=== PATIENT | male | born 1955 | race Caucasian/White ===

== ENCOUNTER 2016-05-20 10:55 | Inpatient (IN) | payer BC ==
[2016-05-20] MEDS ORDERED: Nitroglycerin TAB 0.4 MG* 0.4 MG TAB ONE (11:06)
[2016-05-20] MEDS ORDERED: Heparin for STEMI(*) 5,000 UNITS/ML 1 ML VIAL IV ONE ×2 (11:06→11:13)
[2016-05-20] MEDS ORDERED: Aspirin Low Dose CHEW TAB* 81 MG ONE (11:06)
[2016-05-20] MEDS ORDERED: nitroGLYCERIN DRIP* 250 ML ONE ×2 (11:07→11:15)
[2016-05-20] MEDS ORDERED: Metoprolol Tartrate TAB* 50 mg ONE (11:12)
[2016-05-20] MEDS ORDERED: Aspirin Low Dose CHEW TAB* 81 MG PO ONE (11:13)
[2016-05-20] MEDS ORDERED: Heparin(*) 1000 UNIT/ML 10 ML VIAL CATH LAB IV ONE (11:14)
[2016-05-20] MEDS ORDERED: Midazolam* 1 MG/ML 5 ML VIAL (5 MG) ONE (11:14)
[2016-05-20] MEDS ORDERED: nitroGLYCERIN DRIP* 25,000 MCG in PREMIX* 0 ML IV ONE (11:14)
[2016-05-20] MEDS ORDERED: Metoprolol Tartrate TAB* 50 mg PO ONE (11:14)
[2016-05-20] MEDS ORDERED: fentaNYL* 50 MCG/ML 2 ML VIAL (100 MCG VIAL) ONE (11:14)
[2016-05-20] MEDS ORDERED: Lidocaine 1% INJ* 10 MG/ML 30 ML SDV ONE (11:15)
[2016-05-20] MEDS ORDERED: VERAPAMIL 2.5 MG/ML 4 ML VIAL ONE (11:15)
[2016-05-20] MEDS ORDERED: Iohexol 350 (CONTRAST) 200 ML MDV IV ONE ×2 (11:15→12:11)
[2016-05-20] MEDS ORDERED: Heparin 2 UNITS/ML IVPREMIX* 2,000 ML IV ONE (11:15)
[2016-05-20 11:23] LABS: Hematocrit 48 % (42-52); Hemoglobin 15.6 g/dl (14.0-18.0); Mean Corpuscular HGB Conc 33 g/dl (31-36); Mean Corpuscular Hemoglobin 25 pg (27-31); Mean Corpuscular Volume 77 fL (80-94); Mean Platelet Volume 9 um3 (7.4-10.4); Red Blood Count 6.18 10^6/ul (4.0-5.4); Red Cell Distribution Width 16 % (10.5-15); White Blood Count 11.6 10^3/ul (3.5-10.8)
[2016-05-20 11:36] LABS: Albumin 4.3 g/dL (3.2-5.2); Calcium 9.7 mg/dL (8.6-10.3); EGFR Non-African American 76.2 (>60); Globulin 3.1 g/dL (2-4); Potassium 4.2 mmol/L (3.5-5.0); Total Bilirubin 0.4 mg/dL (0.2-1.0); Total Protein 7.4 g/dL (6.4-8.9)
--- NOTE | 2016-05-20 11:43 | ED ---
Marce Rivers Anna, scribed for Smith Gillespie MD on 05/20/16 at 1116 . HPI Chest Pain - HPI Summary HPI Summary: Patient is a 60 y/o male coming to [facility] presenting with sudden onset of constant chest pain that began at 0400 this morning. The pain feels like indigestion or pressure in his chest and radiates to the back, feeling like a finger poking him in the back. He expresses some SOB. He had diaphoresis and experienced one episode of emesis. The pain does not radiate to his arm or jaw. He felt 14 hours of indigestion-like chest pain two days ago. He was asymptomatic yesterday. Denies bleeding ulcers or blood in stool. The pain is resolved at this time. He took Zantac, 325 mg Aspirin, Gloria Orlando, and two Tums at 0500, which alleviated the pain somewhat. He is a smoker with HLD, on medication for HLD. FHx of CAD. - History of Current Complaint Chief Complaint: EDChestPainROMI Hx Obtained From: Patient Pain Intensity: 3 - Allergy/Home Medications Allergies/Adverse Reactions: Allergies Allergy/AdvReac Type Severity Reaction Status Date / Time No Known Allergies Allergy Verified 05/20/16 11:06 PMH/Surg Hx/FS Hx/Imm Hx Cardiovascular History: Reports: Hx Hypercholesterolemia Denies: Hx Angina, Hx Hypertension, Hx Myocardial Infarction Infectious Disease History: No Infectious Disease History: Denies: Traveled Outside the [place] in Last 30 Days - Family History Known Family History: Positive: Cardiac Disease - Social History Lives: With Family Alcohol Use: None Hx Substance Use: No Substance Use Type: Reports: None Smoking Status (MU): Current Every Day Smoker Review of Systems Positive: Skin Diaphoresis Positive: Chest Pain Positive: Shortness Of Breath Positive: Vomiting Negative: other - Denies blood in stool or bleeding ulcers All Other Systems Reviewed And Are Negative: Yes Physical Exam - Summary Physical Exam Summary: The patient is well-nourished and in mild distress. The skin is warm and dry and skin color reflects adequate perfusion. HEENT: The head is normocephalic and atraumatic. The pupils are equal and reactive. The conjunctivae are clear and without drainage. Nares are patent and without drainage. Mouth reveals moist mucous membranes and the throat is without erythema and exudate. The external ears are intact. The ear canals are patent and without drainage. The tympanic membranes are intact. No rhinorrhea from mouth or throat. Neck There are no carotid bruits. There is no neck vein distension. Respiratory: Chest is non-tender. Lungs are clear to auscultation and breath sounds are symmetrical and equal. Cardiovascular: Heart is regular rate and rhythm. There is no murmur or rub auscultated. There is no peripheral edema and pulses are symmetrical and equal. Good pulses distally. Capillary refill <2 seconds. Abdomen: The abdomen is soft and non-tender. There are normal bowel sounds. Musculoskeletal: There is good capillary refill. There is no peripheral edema or calf tenderness elicited. Neurological: Patient is alert and oriented to person, place and time. No facial droop. Psychiatric: The patient has an appropriate affect and does not exhibit any anxiety or depression. Triage Information Reviewed: Yes Vital Signs On Initial Exam: Initial Vitals Temp Pulse Resp BP Pulse Ox 97.8 F 91 16 175/108 100 05/20/16 11:00 05/20/16 11:00 05/20/16 11:00 05/20/16 11:00 05/20/16 11:00 Vital Signs Reviewed: Yes Diagnostics - Vital Signs Vital Signs Temp Pulse Resp BP Pulse Ox 05/20/16 11:00 97.8 F 91 16 175/108 100 - Laboratory Lab Results: Lab Results 05/20/16 05/20/16 05/20/16 Range/Units 11:10 11:10 11:10 WBC 11.6 H (3.5-10.8) 10^3/ul RBC 6.18 H (4.0-5.4) 10^6/ul Hgb 15.6 (14.0-18.0) g/dl Hct 48 (42-52) % MCV 77 L (80-94) fL MCH 25 L (27-31) pg MCHC 33 (31-36) g/dl RDW 16 H (10.5-15) % Plt Count 246 (150-450) 10^3/ul MPV 9 (7.4-10.4) um3 Neut % (Auto) 80.9 (38-83) % Lymph % (Auto) 14.8 L (25-47) % Stan[place]aus % (Auto) 3.5 (1-9) % Eos % (Auto) 0.1 (0-6) % Baso % (Auto) 0.7 (0-2) % Absolute Neuts (auto) 9.4 H (1.5-7.7) 10^3/ul Absolute Lymphs (auto) 1.7 (1.0-4.8) 10^3/ul Absolute Monos (auto) 0.4 (0-0.8) 10^3/ul Absolute Eos (auto) 0 (0-0.6) 10^3/ul Absolute Basos (auto) 0.1 (0-0.2) 10^3/ul Absolute Nucleated RBC 0.01 10^3/ul Nucleated RBC % 0.1 INR (Anticoag Therapy) 0.93 (0.89-1.11) APTT 37.6 H (26.0-36.3) seconds Lactic Acid 1.6 (0.5-2.0) mmol/L Result Diagrams: 05/20/16 11:10 Lab Statement: Any lab studies that have been ordered have been reviewed, and results considered in the medical decision making process. - EKG 1104 Cardiac Rate: NL - [address] Segment: : Normal - ST elevation V2, V3, V4, V5 with reciprocal changes in I and Jonna. Acute, anterior wall NJ. EKG Interpretation: Poor R-wave progression. Chest Pain Course/Dx - Course Assessment/Plan: Obese 60 y/o male with mild distress. Skin is warm and dry. Patient is alert and oriented. Upon physical exam, no TM erythema, no rhinorrhea from mouth or throat. No facial droop. No carotid bruits. No distended neck vein. HRRR w/o murmur. No reproducible CP. Lungs CTA. Belly obese , soft, tender. Good bowel sounds. Good pulses distally. Capillary refill < [address] elevations leads V2-V5 with acute anterior NJ. Treated with Heparin, Aspirin, NTG dip, and going to cardiac catheterization lab. Consult out to Dr. He. STEMI called. Dx acute anterior NJ. - Chest Pain Differential Diagnosis/HQI/PQRI: Acute NJ, ACS, Angina, GI Disease - Diagnoses Provider Diagnoses: ST elevation myocardial infarction (STEMI) of anterior wall During the Visit The Following Alert/Code Occurred: STEMI - Called at 1105 - Provider Notifications Discussed Care Of Patient With: Dr. He (cardiology) at 1108. Accepts patient for admission to cardiac laboratory director. Discharge - Discharge Plan Condition: Critical Disposition: ADMITTED TO [facility] Referrals: No Primary Care Phys,NOPCP [Primary Care Provider] - The documentation as recorded by the Marce mcintyre Anna accurately reflects the service I personally performed and the decisions made by me, Smith Gillespie MD.
[2016-05-20] MEDS ORDERED: Ticagrelor* 90 MG TAB PO ONE (12:21)
[2016-05-20] MEDS ORDERED: Nitroglycerin TAB 0.4 MG* 0.4 MG TAB SL PRN (12:48)
[2016-05-20] MEDS ORDERED: NS 0.9% 1000 ML* 1,000 ML IV SCH (13:00)
[2016-05-20] MEDS: Metoprolol Tartrate TAB* 25 MG PO SCH ×2 (13:46→20:43)
[2016-05-20 14:13] LABS: Hematocrit 43 % (42-52); Mean Corpuscular HGB Conc 32 g/dl (31-36); Mean Corpuscular Hemoglobin 25 pg (27-31); Mean Corpuscular Volume 77 fL (80-94); Mean Platelet Volume 9 um3 (7.4-10.4); Red Blood Count 5.61 10^6/ul (4.0-5.4); Red Cell Distribution Width 16 % (10.5-15); White Blood Count 12.9 10^3/ul (3.5-10.8)
[2016-05-20 14:14] LABS: Add Diff/Slide Review? Slide Review Added; Comments Flag Yes
[2016-05-20 14:30] LABS: Albumin 3.9 g/dL (3.2-5.2); Calcium 9.2 mg/dL (8.6-10.3); EGFR African American 119.9 (>60); EGFR Non-African American 93.2 (>60); Globulin 2.7 g/dL (2-4); HDL Cholesterol 38.3 mg/dL; Total Bilirubin 0.5 mg/dL (0.2-1.0); Total Protein 6.6 g/dL (6.4-8.9)
[2016-05-20] MEDS: Captopril TAB* 12.5 MG PO SCH ×2 (14:30→20:43)
[2016-05-20 14:46] LABS: Creatine Kinase 3146 U/L (10-223); Troponin I > 85.00 ng/mL (<0.04)
--- NOTE | 2016-05-20 17:43 | HP ---
CC: Dr. Mccarty in [place]; Cem He MD HISTORY AND PHYSICAL: DATE OF ADMISSION: 05/20/16 PRIMARY: Dr. Mccarty in [place]. HISTORY OF PRESENT ILLNESS: A 60-year-old male presenting to the ER with acute anterolateral ST drake vation infarct. He has no previous cardiac history. Two days ago, he had what he thought was heartburn all day long with burning precordial chest discomfort that resolved spontaneously. There was some waxing and wa tay to the quality. Yesterday, he had no symptoms. This morning, he had the same discomfort, with radiation to the left arm. He presented to the ER where he had anterolateral ST elevation at 11:04 in 1, aVL, V2 through V6 with poor R-wave progression. There is no old tracing. A STEMI was greene d. PAST MEDICAL HISTORY: 1. Cancer of the prostate, status post prostatectomy. 2. Hyperlipidemia, only on fenofibrate. 3. Obesity. 4. History of hyperglycemia without diagnosis of diabetes. PREHOSPITAL MEDICATIONS: Fenofibrate, unknown mg. ALLERGIES: None to medications. FAMILY HISTORY: Positive for heart disease. SOCIAL HISTORY: He is retired from [employer]. He has girlfriend. He smokes. REVIEW OF SYSTEMS: General: No weight loss. No fever. 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 GI: No h istory of peptic ulcer disease or bleeding. : Status post prostatectomy. Circulatory: No rachael ication. Remainder, all negative. PHYSICAL EXAMINATION VITAL SIGNS: When seen in the ER, initial BP 175/108 with repeated 125/78, on nitro. Heart rate in the 70s. No ectopy. HEENT: Unremarkable without xanthelasma. He does have corneal arcus. NECK: JVP and carotids normal. No bruits. No thyromegaly. LUNGS: Clear to percussion and auscultation. CARDIAC EXAM: He has S4 gallop. No S3. No murmur. Sherman not palpable. RV not palpable. ABDOMEN: Obese, nontender. Aorta and liver not palpable. No abdominal bruits. Femoral pulses 2+, no bruits. EXTREMITIES: Radial pulses 2+. Pedal pulses 2+. No cyanosis, clubbing, or edema. SKIN: Warm and perfused. PSYCH: He is oriented and appropriate. LABORATORY DATA: EKG as above. White count elevated at 11.6 with MCV of 77 with a normal hemoglob in. Initial blood sugar high at 209 with sodium of 130. First CPK, already elevated at 324 with MB of 31. Troponin 1. BNP 81. His cholesterol is 202, triglycerides 140, LDL 136, HDL 38.3. Hemogl obin A1c is pending. IMPRESSION: 1. Extensive anterolateral ST elevation infarct with symptoms 48 hours prior, likely not extensive infarct at that time based on the minimally elevated troponin at presentation. 2. Likely diabetes. We will check a hemoglobin A1c. 3. Hyperlipidemia. He will be started on a high dose potent statin. 4. Status post prostatectomy for carcinoma of the prostate. 5. Obesity. He will be educated regarding secondary prevention measures. 6. Tobacco use. We will encourage him not to resume smoking. [id number]/[facility] #: [id number]
[2016-05-20] MEDS: Atorvastatin* 80 MG TAB PO SCH (18:40)
[2016-05-20] MEDS: Ticagrelor* 90 MG TAB PO SCH (20:43)
[2016-05-20] MEDS: Acetaminop/Codeine 30 MG TAB* 1 TAB (300 MG/30 MG) PO PRN (22:00)
[2016-05-21 02:09] LABS: Creatine Kinase 2164 U/L (10-223)
[2016-05-21] MEDS: Metoprolol Tartrate TAB* 25 MG PO SCH ×3 (04:19→20:50)
[2016-05-21 05:02] LABS: Hematocrit 46 % (42-52); Hemoglobin 14.7 g/dl (14.0-18.0); Mean Corpuscular HGB Conc 32 g/dl (31-36); Mean Corpuscular Hemoglobin 25 pg (27-31); Mean Corpuscular Volume 77 fL (80-94); Mean Platelet Volume 9 um3 (7.4-10.4); Red Blood Count 5.95 10^6/ul (4.0-5.4); Red Cell Distribution Width 16 % (10.5-15); White Blood Count 12.2 10^3/ul (3.5-10.8)
[2016-05-21 05:05] LABS: BUN/Creatinine Ratio 11.9 (8-20); Calcium 9.8 mg/dL (8.6-10.3); EGFR African American 96.9 (>60); EGFR Non-African American 75.4 (>60); Potassium 4.4 mmol/L (3.5-5.0)
[2016-05-21 05:08] LABS: Troponin I > 85.00 ng/mL (<0.04)
[2016-05-21] MEDS: Ticagrelor* 90 MG TAB PO SCH ×2 (08:22→20:49)
[2016-05-21] MEDS: Captopril TAB* 12.5 MG PO SCH ×4 (08:22→20:48)
[2016-05-21] MEDS: Aspirin Low Dose CHEW TAB* 81 MG PO SCH (08:22)
[2016-05-21] MEDS: Nicotine PATCH 14 MG/24 HR* PATCH TRANSDERM SCH ×2 (12:44→20:48)
[2016-05-21 14:48] LABS: BUN/Creatinine Ratio 12.8 (8-20); Calcium 9.5 mg/dL (8.6-10.3); EGFR African American 116.7 (>60); EGFR Non-African American 90.7 (>60); Potassium 4.1 mmol/L (3.5-5.0)
[2016-05-21] MEDS: Atorvastatin* 80 MG TAB PO SCH (17:28)
[2016-05-21] MEDS: Nicotine Patch Removal NOTE PATCH OFF SCH (20:52)
[2016-05-22] MEDS: Metoprolol Tartrate TAB* 25 MG PO SCH ×3 (05:41→17:45)
[2016-05-22 06:32] LABS: BUN/Creatinine Ratio 18.1 (8-20); Calcium 9.3 mg/dL (8.6-10.3); EGFR African American 105.3 (>60); EGFR Non-African American 81.9 (>60); Potassium 3.9 mmol/L (3.5-5.0)
[2016-05-22] MEDS: Nicotine PATCH 14 MG/24 HR* PATCH TRANSDERM SCH (09:47)
[2016-05-22] MEDS: Aspirin Low Dose CHEW TAB* 81 MG PO SCH (09:48)
[2016-05-22] MEDS: Acetaminop/Codeine 30 MG TAB* 1 TAB (300 MG/30 MG) PO PRN (09:48)
[2016-05-22] MEDS: Ticagrelor* 90 MG TAB PO SCH ×2 (09:48→21:31)
[2016-05-22] MEDS: Captopril TAB* 12.5 MG PO SCH ×3 (09:49→21:32)
[2016-05-22] MEDS: Enoxaparin(*) 40 MG/0.4 ML SYR SUBCUT SCH (09:51)
--- NOTE | 2016-05-22 10:01 | ECHO ---
Patient: ANA HURTADO Rec#: [id number] : 1955 Date: 05/22/2016 Age: 60y Height: 185.42 cm / 73.0 in Weight: 126.55 kg / 278.9 lbs Sex: M BSA: 2.48 Room#: [facility] Admit Date#: 05/21/2016 Type: Inpatient Referring: Abdullahi Caro MD Reading: Abdullahi Caro MD Machine Wedger: Reece Casper RDCS Transthoracic Echocardiogram Indication: S/P anterior stemi with pci BP: 112/77 HR: 94 Rhythm: NSR Findings History: prostate cancer, HLD, obesity, hyperglycemia Technical Comments: The study is technically difficult. The study is technically limited due to poor apical windows. The study is technically limited due to patient body habitus. Left Ventricle: The left ventricular chamber size is normal. Mild to moderate concentric left ventricular hypertrophy is observed. There is a focal wall motion abnormality present.There is moderate to severe hypokinesis of the mid to distal anterior wall with akinesis of the apical area and severe hypokinesis of the mid to distal anteroseptal area. There is moderately decreased left ventricular systolic function. The estimated ejection fraction is 35-40%. Visually estimate LVEF closer to 35 %. Abnormal left ventricular diastolic filling is observed, consistent with impaired relaxation. The absence of left atrial enlargement suggests this finding is not chronic and may not have clinical significance. Left Atrium: The left atrial chamber size is normal. Right Ventricle: The right ventricular cavity size is normal. The right ventricular global systolic function is normal. Right Atrium: The right atrial cavity size is normal. Aortic Valve: The aortic valve is trileaflet. There is no evidence of aortic regurgitation. There is no evidence of aortic stenosis. Mitral Valve: The mitral valve leaflets appear normal. There is no evidence of mitral regurgitation. There is no evidence of mitral stenosis. Tricuspid Valve: There is no evidence of tricuspid valve regurgitation. Pulmonic Valve: The pulmonic valve structure is not well visualized. Pericardium: There is no pericardial effusion. Aorta: There is no dilatation of the ascending aorta. There is no dilatation of the aortic arch. There is no dilation of the aortic root. Pulmonary Artery: The main pulmonary artery is not well visualized. Venous: The inferior vena cava appears normal in size. There is a greater than 50% respiratory change in the inferior vena cava dimension. Conclusions The study is technically difficult. The study is technically limited due to poor apical windows. The study is technically limited due to patient body habitus. Mild to moderate concentric left ventricular hypertrophy is observed. There is a focal wall motion abnormality present as described above.. There is moderately decreased left ventricular systolic function. The estimated ejection fraction is 35-40%. Visually estimate LVEF closer to 35 %. Abnormal left ventricular diastolic filling is observed, consistent with impaired relaxation (see description above). As best as can be assessed with suboptimal images , there is no significant valvular disease. No reports of prior studies are offered for comparison. Measurements Name Value Normal Range RVIDd (AP) 2D 2 cm (0.9 - 2.6) RVDdMajor (2D) 2.3 cm (2.2 - 4.4) RAd ISD 4CH 4.7 cm (3.4 - 4.9) RA (A4C)W 2.4 cm (2.9 - 4.6) IVSd (2D) 1.4 cm (0.6 - 1) LVPWd (2D) 1.4 cm (0.6 - 1) LVIDd (2D) 5.2 cm (3.6 - 5.4) LVIDs (2D) 3.6 cm - LV FS (2D) 31 % (25 - 45) Aortic Annulus 2 cm (1.4 - 2.6) Ao root diameter (2D) 3.5 cm (2.1 - 3.5) Ascending Ao 3.6 cm (2.1 - 3.4) Aortic arch 2.7 cm (1.8 - 3.4) LA dimension (AP) 2D 3.3 cm (2.3 - 3.8) LAd ISD 4CH 5.7 cm (2.9 - 5.3) LA ISD 4CH W 3.2 cm (2.5 - 4.5) Name Value Normal Range LA ESV SP 4CH (A/L) 19 ml - LA ESV SP 2CH (A/L) 23 ml - LA ESV BP (A/L) 22 ml - LA ESV BP (A/L) index 9.24 ml/m2 - LA ESV SP 4CH (MOD) 17 ml - LA ESV SP 2CH (MOD) 22 ml - Name Value Normal Range MV E-wave Vmax 0.58 m/sec - MV deceleration time 132 msec - MV A-wave Vmax 0.91 m/sec - MV E:A ratio 0.64 ratio - LV septal e' Vmax 0.03 m/sec - LV lateral e' Vmax 0.03 m/sec - LV E:e' septal ratio 19.3 ratio - LV average E:e' ratio 19.3 ratio - Name Value Normal Range LVOT diameter 2.4 cm - LVOT Vmax 0.8 m/sec - Name Value Normal Range IVC diameter 1.32 cm - Name Value Normal Range PV Vmax 0.59 m/sec -
[2016-05-22] MEDS: Atorvastatin* 80 MG TAB PO SCH (17:45)
[2016-05-22] MEDS: Nicotine Patch Removal NOTE PATCH OFF SCH (21:36)
[2016-05-23] MEDS: Acetaminop/Codeine 30 MG TAB* 1 TAB (300 MG/30 MG) PO PRN (00:15)
[2016-05-23] MEDS: Metoprolol Tartrate TAB* 25 MG PO SCH ×2 (05:33→17:48)
[2016-05-23 06:02] LABS: BUN/Creatinine Ratio 19.8 (8-20); Calcium 9.4 mg/dL (8.6-10.3); EGFR African American 96.9 (>60); EGFR Non-African American 75.4 (>60); Potassium 4.2 mmol/L (3.5-5.0)
[2016-05-23] MEDS: Ticagrelor* 90 MG TAB PO SCH ×2 (08:10→20:18)
[2016-05-23] MEDS: Captopril TAB* 12.5 MG PO SCH ×3 (08:10→20:22)
[2016-05-23] MEDS: Aspirin Low Dose CHEW TAB* 81 MG PO SCH (08:10)
[2016-05-23] MEDS: Enoxaparin(*) 40 MG/0.4 ML SYR SUBCUT SCH (08:11)
[2016-05-23] MEDS: Nicotine PATCH 14 MG/24 HR* PATCH TRANSDERM SCH (08:24)
[2016-05-23] MEDS ORDERED: Dextrose 50% Syringe 50 ML* 25 GM/50 ML SYRINGE IV PUSH PRN (14:25)
--- NOTE | 2016-05-23 17:33 | CONS ---
CONSULTATION REPORT: DATE OF CONSULT: 05/23/16 PRIMARY CARE PROVIDER: Dr. Mccarty from [place]. ATTENDING PHYSICIAN: Beth Hernandez MD (report dictated by Darwin Barnhart NP). REQUESTING PHYSICIAN FOR CONSULTATION: Dr. Caro. REASON FOR MEDICAL EVALUATION: Medical management and evaluation of new onset diabetes. HISTORY OF PRESENT ILLNESS: I refer you to Dr. Jamison H and P for further details. In short, Mr. Logan is a 60-year-old male patient who carries a history of prostate cancer, hyperlipidemia, hyperglycemia and history of recent LA. He came in initially for chest discomfort starting over the weekend prior to admission and got better on Saturday and then worse again on Saturday to the point where he decided to come in to be evaluated as he was starting to get cold sweats associated with the chest pain and some arm discomfort. He came into the ER, was found to be having a STEMI, was taken to the dairy lab technician. I refer you to the cath report for details. The patient did have a stent placed. While here, an A1c was drawn, it was noted to be 8.2. Because of this, hospital service was asked to evaluate in consult. The patient states that to his knowledge, his sugars have been running high for a long time, they have been up as high as in the 200s. He says he has not been on any medications for this. He says that he does not have a glucometer at home. In addition to this , he says that he has not been having any polyuria, polydipsia, or polyphagia as far as he is aware. He is interested in diabetes education and because of the new diagnosis, we were asked to evaluate in consult. PAST MEDICAL HISTORY: Significant for: 1. Prostate cancer. 2. Hyperlipidemia. 3. New onset diabetes. 4. LA. 5. CAD. SURGICAL HISTORY: He has had a history of cardiac catheterization just done on the , prostatectomy and knee surgery. CURRENT MEDICATIONS: Include: 1. Tylenol with Codeine 1 tablet every 4 hours as needed. 2. Aspirin 81 mg daily. 3. Atorvastatin 80 mg p.o. daily. 4. Captopril 18.75 mg p.o. t.i.d. 5. Lovenox 40 mg subcu every 24 hours. 6. Metoprolol tartrate 50 mg every 12 hours p.o. 7. Nicotine patch 14 mg every 24 hours. 8. Nitro 0.4 mg sublingual q.5 minutes p.r.n. chest pain x3. 9. Brilinta 90 mg p.o. b.i.d. ALLERGIES TO MEDICATIONS: Include no known drug allergies. FAMILY HISTORY: His father had a history of prostate cancer as well. SOCIAL HISTORY: He is a pack a day smoker since the age of 35, he is interested in quitting. He does not drink alcohol. He has a girlfriend who also is his surrogate decision maker. He has 1 child. REVIEW OF SYSTEMS: There is no documented fever. He denied having any significant weight change. There was no double vision. There is no ear discharge. He denies having any rhinorrhea. There is no sore throat. No thyroid enlargement. He denies having any chest pain. There is no orthopnea. No nocturnal dyspnea. There is no abdominal pain. No nausea or vomiting. No dysuria. No frequency. No seizure. No loss of consciousness. No pruritus and no skin ulcerations. Review of 14 systems completed, all others negative. PHYSICAL EXAM: Vital Signs: Blood pressure 119/71, pulse 89, respirations are 12, O2 sat of 98%, temperature 97.9. General: At this time, Mr. Logan is a 60- year- old male patient coming into the ER originally with STEMI. He is sitting in the ICU bed now. He appears to be well nourished, well developed. HEENT: Head atraumatic, normocephalic. Eyes: EOMs intact. Sclerae anicteric, not pale. Neck: Supple. Throat: Oral mucosa appears to be moist. No oropharyngeal erythema. Heart sounds S1, S2. Regular rate and rhythm. No murmurs, rubs or gallops. Lungs: Clear to auscultation bilaterally. No wheezes, rales or rhonchi. Abdomen: Soft, flat, nontender. Bowel sounds are present. Extremities: Pulses are 2+ throughout. Able to move all 4 extremities with 5/5 strength. Neurologically, the patient is awake, alert, and oriented x3. No gross focal deficits. Skin is intact. DIAGNOSTIC STUDIES/LAB DATA: The labs from the , WBC 12.2, RBC of 5.95, hemoglobin of 14.7, hematocrit of 46, platelet count 241. The INR was 0.93. Sodium 132, potassium 4.2, chloride 102, bicarb 26, BUN 20, creatinine 1.01, glucose 150, A1c 8.2. His triglycerides are 140, cholesterol 202, LDH 136. He had an echo on the , which shows EF of 35% to 40%. EKG shows normal sinus rhythm, rate of 77. He had some elevations actually in V2, 3, 4 but these are improving and appear to be stable. Old medical records were reviewed. ASSESSMENT AND PLAN: Mr. Logan is a 60-year-old male patient coming into the interventional and cardiology service for a ST elevation myocardial infarction. Hospitalist service was asked to evaluate in consult for diabetes management. My recommendations at this point are: 1. Coronary artery disease, status post ST elevation myocardial infarction. I will defer the management to Dr. Caro and his team. 2. Hyperlipidemia. Continue with statin therapy. 3. Diabetes. I placed a consult to Jacque Villanueva, our diabetic educator. I would get him into [facility], which the patient is interested in doing for cardiac rehab which would be a nice place for him to also get some diabetes education as well. For the time being, I did put him on a sliding scale which is while he is here in the hospital. At discharge, he can go home on metformin 500 mg twice a day with a goal of 1000 mg twice a day which can be titrated by his primary and he will need to also be discharged home with a glucometer and lancets as well and test strips. 4. Hypertension. Continue meds as prescribed. 5. DVT prophylaxis. We will defer to Dr. Caro. He is on Lovenox. 6. Fluid, electrolytes and nutrition. I would recommend a consistent carb diet. 7. Code status: Full code. TIME SPENT: Time spent on the consult, 60 minutes; greater than half the time spent [id number] with the patient obtaining my history and physical; other half the time spent going over the plan of care with the patient and implementing the plan of care. I discussed the plan of care with my attending, Dr. Hernandez; she is in agreement. DARWIN BARNHART NP CC: Dr. Mccarty; Dr. Hernandez; Dr. Caro; Dr. He * [id number]/[facility] #: [id number] PAUL
[2016-05-23] MEDS: Insulin LISPRO* 1 UNITS UNIT SUBCUT SCH (17:47)
[2016-05-23] MEDS: Atorvastatin* 80 MG TAB PO SCH (17:48)
[2016-05-23] MEDS: metFORMIN* 500 MG TAB PO SCH (17:48)
[2016-05-23] MEDS: Nicotine Patch Removal NOTE PATCH OFF SCH (20:26)
[2016-05-24] MEDS: Metoprolol Tartrate TAB* 25 MG PO SCH (06:46)
[2016-05-24] MEDS: Insulin LISPRO* 1 UNITS UNIT SUBCUT SCH ×2 (09:15→13:11)
[2016-05-24] MEDS: Captopril TAB* 12.5 MG PO SCH (09:16)
[2016-05-24] MEDS: Aspirin Low Dose CHEW TAB* 81 MG PO SCH (09:16)
[2016-05-24] MEDS: Ticagrelor* 90 MG TAB PO SCH (09:17)
[2016-05-24] MEDS: metFORMIN* 500 MG TAB PO SCH (09:17)
[2016-05-24] MEDS: Nicotine PATCH 14 MG/24 HR* PATCH TRANSDERM SCH (09:17)
[2016-05-24] MEDS: Enoxaparin(*) 40 MG/0.4 ML SYR SUBCUT SCH (09:24)
[2016-05-24] MEDS ORDERED: Perflutren Lipid Microsphere* 1.1 MG/ML VIAL IV ONE (10:00)
--- NOTE | 2016-05-24 10:57 | ECHO ---
Patient: ANA HURTADO Rec#: [id number] : 1955 Date: 05/24/2016 Age: 60y Height: 185 cm / 72.8 in Weight: 120.2 kg / 264.9 lbs Sex: M BSA: 2.42 Room#: 433 Admit Date#: 05/21/2016 Type: Inpatient Referring: Abdullahi Caro MD Reading: Abdullahi Caro MD Math And Physics Instructor: Cyndie Camara RN RDCS Transthoracic Echocardiogram Indication: Anterior wall STEMI S/P PCI BP: 124/79 HR: 86 Rhythm: NSR Findings History: HLD, hyperglycemia, obesity, smoker. This is a LIMITED study to reassess LV function. DEFINITY echo-enhancing agent was administered under the direction of Dr. Caro to optimize imaging in the apical views. Technical Comments: The study is technically limited due to patient body habitus. The study is technically limited due to the patient's smoking history. Left Ventricle: There is a focal wall motion abnormality present.The distal anterior wall and apex and distal septum are akinetic when viewed with contrast. There is moderate to severely decreased left ventricular systolic function. The estimated ejection fraction is 30-35%. Right Ventricle: The right ventricular chamber size and systolic function are within normal limits. The right ventricle wall thickness is mildly increased.at 0.8 cm. Pericardium: A trivial pericardial effusion is visualized. Contrast: Intravenous contrast was used to enhance endocardial border definition. A total of 3 ml of diluted Definity was administered IV. Conclusions There is akinesis of the distal anterior , mid to distal anteroseptal and apical and distal inferior wall. The estimated ejection fraction is 30-35%. There is preservation of the proximal to mid inferior/posterior wall.
[2016-05-24 13:16] VITALS: BP 116/78
--- NOTE | 2016-05-24 15:55 | CONSULT ---
Subjective Reason for Visit: chest pain Admission Date: 05/20/16 Glucose Level On Admission: 209 History Of Present Illness: Mr. Logan is a 60 year old male who was admitted on 05/20/16. He began having chest pain on 05/18, which he thought was heart burn. The chest pain continued throughout the weekend. On Saturday, he took aspirin, ibuprofen, Tums, and Zantac , but continued to have pain. He projectile vomited and then decided to go to the emergency room, where they found that he was having a STEMI. He reports that prior to this admission, his blood glucose had been elevated, but never in the diabetic range. His HgbA1C on this admission was 8.2. He denies any recent polyuria, polyphagia, or polydipsia. 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 When he comes inside, his girlfriend cooks meals such as hamburger helper, and he struggles to not overeat. He stopped drinking soda years ago. He does not do any formal exercise, but is active in his shop and around the house. Patient History Surgical History: Yes Surgery Procedure, Year, and Place: prostetectomy in 2011 Lives With: Partner Social Support: girlfriend Preferred/Primary Language: Belgian Hx Tobacco Use: Yes Smoking/Tobacco use: Current Exercise: no formal exercise Review Of Systems - Review of Systems Constant: No Weight Loss, No Weight Gain, - - chonic fatigue Cardiovascular: - - pt is admitted for STEMI Skin: No Open Wounds Endocrine: No Polyuria, No Polyphagia, No Polydipsia Objective Allergies Allergy/AdvReac Type Severity Reaction Status Date / Time No Known Allergies Allergy Verified 05/20/16 11:06 Home Medications Medication Instructions Recorded Confirmed Type Aspirin Low Dose CHEW TAB* 81 mg PO DAILY tab.chew 05/24/16 Rx [Aspirin Low Dose TAB*] Atorvastatin* [Lipitor 80 MG*] 80 mg PO 1700 #30 tab 05/24/16 Rx Captopril TAB* [Capoten TAB*] 18.75 mg PO TID #150 tab 05/24/16 Rx Metoprolol Tartrate TAB* 50 mg PO BID #60 tab 05/24/16 Rx [Lopressor TAB*] Nitroglycerin TAB 0.4 MG* 0.4 mg SL Q5M PRN #25 tab 05/24/16 Rx Ticagrelor* [Brilinta 90 MG*] 90 mg PO BID #60 tab 05/24/16 Rx metFORMIN* [Glucophage 500 MG TAB 500 mg PO 0800,1700 #60 tab 05/24/16 Rx *] Hospital Medications: Current Medications Acetaminophen/Codeine Phosphate (Tylenol/Codeine 30 Mg Tab*) 1 tab PO Q4H PRN PRN Reason: PAIN Last Admin: 05/23/16 00:15 Dose: 1 tab Aspirin (Aspirin Low Dose Tab*) 81 mg PO DAILY [facility] Last Admin: 05/24/16 09:16 Dose: 81 mg Atorvastatin Calcium (Lipitor*) 80 mg PO 1700 [facility] Last Admin: 05/23/16 17:48 Dose: 80 mg Captopril (Capoten Tab*) 18.75 mg PO TID [facility] Last Admin: 05/24/16 09:16 Dose: 18.75 mg Dextrose (D50w Syringe 50 Ml*) 12.5 gm IV PUSH .FOR FS < 60 - SS PRN PRN Reason: FS < 60 Enoxaparin Sodium (Lovenox(*)) 40 mg SUBCUT Q24H [facility] Last Admin: 05/24/16 09:24 Dose: Not Given Insulin Human Lispro (Humalog*) 0 units SUBCUT AC [facility] PRN Reason: Protocol Last Admin: 05/24/16 13:11 Dose: Not Given Metformin HCl (Glucophage*) 500 mg PO 0800,1700 [facility] Last Admin: 05/24/16 09:17 Dose: 500 mg Metoprolol Tartrate (Lopressor Tab*) 50 mg PO Q12H [facility] Last Admin: 05/24/16 06:46 Dose: 50 mg Nicotine (Nicotine Patch 14 Mg/24 Hr*) 1 patch TRANSDERM 0800 [facility] Last Admin: 05/24/16 09:17 Dose: 1 patch Nitroglycerin (Nitroglycerin Tab 0.4 Mg*) 0.4 mg SL Q5M PRN PRN Reason: ANGINA Pharmacy Profile Note (Nicotine Patch Removal Note*) 1 note PATCH OFF 2100 [facility] Last Admin: 05/23/16 20:26 Dose: 1 note Ticagrelor (Brilinta*) 90 mg PO BID [facility] Last Admin: 05/24/16 09:17 Dose: 90 mg Lab Data: Sodium 132 mmol/L (133-145) L 05/23/16 05:45 Potassium 4.2 mmol/L (3.5-5.0) 05/23/16 05:45 BUN 20 mg/dL (6-24) 05/23/16 05:45 Creatinine 1.01 mg/dL (0.67-1.17) 05/23/16 05:45 Hemoglobin A1c 8.2 % (Less than 6.0) H 05/23/16 05:45 Calcium 9.4 mg/dL (8.6-10.3) 05/23/16 05:45 AST 214 U/L (13-39) H 05/20/16 13:55 ALT 62 U/L (7-52) H 05/20/16 13:55 Triglycerides 140 mg/dL 05/20/16 13:55 Cholesterol 202 mg/dL 05/20/16 13:55 LDL Cholesterol 136 mg/dL 05/20/16 13:55 Vital Signs: Vital Signs 05/24/16 05/24/16 08:00 11:14 Temperature 36.8 C Pulse Rate 89 Respiratory 20 18 Rate Blood Pressure 116/78 (mmHg) O2 Sat by Pulse 98 Oximetry Height: 6 ft 1 in Weight: 120.2 kg Body Mass Index (BMI): 34.9 Physical Exam General Appearance: Positive: Alert, Oriented x3, Well Developed, Overweight, No Distress Respiratory: Positive: Non-Labored Plan Of Care Patient's Next Step: Pt will be discharged to home on 1000 mg of Metformin BID. He was given a glucometer, and shown how to use it. He provided a return demonstration. We discussed goals for fasting and postprandial blood glucose. He will check fasting blood sugars daily and postprandial 3 times a week. He will be doing cardiac rehab at [facility]. He should also have more extensive diabetes education at that time. Referral To: [facility] For Further OutPT Diabetic Training Diagnosis: Type II diabetes Discharge Plan: discharge to home, follow up at [facility] for cardiac rehab and further diabetic education Education Prior Diabetic Education: No Education Provided: Insulin To Carb Ratio and Carb Counting, Blood Glucose Monitoring, When To Seek Medical Attention Handouts Provided: carbohydrate counting Goals Goals: According to the [place] [employer], the following are your goals for Hemaglobin A1C, Blood Glucose. Hemaglobin A1C * <7.0% for most * <6.5% for "healthy" * <8.0% for "Less Healthy" Blood Glucose * Fasting Blood Glucose: 80-130 mg/dl * 2 Hour Post Prandial Glucose <180 mg/dl
--- NOTE | 2016-05-25 01:36 | DS ---
DISCHARGE SUMMARY: DATE OF ADMISSION: 05/20/16 DATE OF DISCHARGE: 05/24/16 FINAL DIAGNOSIS: Acute late presentation anterior wall myocardial infarction. SECONDARY DIAGNOSES: 1. Stenotic coronary artery disease. 2. Cancer of the prostate. 3. Hyperlipidemia. 4. Obesity. 5. Diabetes mellitus. HOSPITAL COURSE: The patient is a pleasant 60-year-old gentleman who presented to [facility] in the throes of a late presentation anterior wall myocardial infarction on 05/20/16. Please refer to the history and physical by Dr. Mina He for complete details. He was taken emergently to the cardiovascular laboratory where cardiac catheterization was performed with subsequent intervention. He was found on cardiac catheterization to have a 40% proximal LAD followed by 100% occlusion after a very ectatic area. The circumflex was a dominant vessel. The right coronary artery was nondominant with a proximal 50% and mid 50%. LVEF showed anterior apical akinesis with an EF felt by LV gram of 35% to 40%. He underwent stenting of the left anterior descending artery with a 4.0 x 28 mm long Synergy drug-eluting stent post dilated to 4.5 mm. In his post hospital course, he underwent an initial transthoracic echocardiogram on 05/22/16, which showed moderate to severe hypokinesis of the mid to distal anterior wall akinesis of the apical and severe hypokinesis of the mid to distal anterior septal region with an EF that was closer to 35%. It was difficult images in general to asses at that time. There was no significant valvular heart disease. During the hospital course, medications were titrated up including Captopril to eventually 18.75 mg 3 times a day and metoprolol tartrate to 50 mg twice a day in addition to his baby aspirin and his ticagrelor 90 mg twice a day. During the course of the hospitalization, the patient had a consultation by the Hospitalist for his diabetes in that he had elevated fasting blood sugars that persisted throughout the hospital course. He was seen in consultation by nurse practitioner Darwin Barnhart with Dr. Hernandez's oversight. A recommendation was made to place him on metformin 500 mg twice a day with eventually titration up by his primary doctor perhaps to a 1000 mg twice a day. He was also recommended to have a consistent carb diet. A weight reduction attempt will need to be pursued as well. He had a repeat echocardiogram limited with contrast to look at his LV function and it was deemed to be in the 30% to 35% range and as such, a LifeVest was ordered and was placed prior to his discharge from the hospital. On the day of discharge, he was up and about stable with no active chest or jaw , arm discomfort, shortness of breath, PND, orthopnea, or ankle edema. PHYSICAL EXAMINATION: Vital Signs: Revealed blood pressure of 124/79, pulse was in the 80s, afebrile, O2 saturation 97% on room air with respirations 20. Neck was supple with no increased JVP. Carotid had good upstroke and volume without bruits. Conjunctivae were pink. Sclerae clear. Mouth revealed moist mucosa. Lungs revealed no accessory muscle usage. There was good excursion. Lungs were clear to A and P. heart revealed no visible heaves. No palpable heaves or thrills. Heart sounds were somewhat distant in nature, but no active systolic or diastolic murmur were appreciated. Abdomen was obese, soft, nontender. Extremities were without clubbing, cyanosis or anabela pitting edema. The right radial artery site was well healed and there was good pulse and good antegrade flow. Neuro: The patient was alert, oriented with normal mentation. Musculoskeletal: The patient with normal gait. Psychiatric: The patient with normal affect. The most recent laboratory results prior to discharge included hemoglobin, hematocrit from 05/21/16 of 14.7 and 46 with a platelet count of 241,000. The last BMP was from 05/23/16, sodium 132, potassium 4.2. BUN and creatinine of 20 and 1.0. Last recorded electrocardiogram was from 05/22/16 and revealed sinus rhythm, heart rate 77, HI interval 0.16, QRS 0.09, QT 0.37. [place] was - 46 degrees. There were Q waves throughout the whole precordium with minimal residual ST elevation present and Q wave in II, poor R waves in III and aVF and minimal T wave inversion in aVL. MEDICATIONS AT THE TIME OF DISCHARGE: Included: 1. Captopril 18.75 mg 3 times a day. 2. Metformin 500 mg twice a day. 3. Metoprolol tartrate 50 mg twice a day. 4. Ticagrelor 90 mg twice a day. DISCHARGE INSTRUCTIONS: The patient will be seeing Dr. Mina He in followup on 05/28/16 at 3:20 p.m. He was instructed to set up a followup appointment within the next 1 to 2 weeks with his family doctor. The patient had received a cardiac education booklet and a stent card in addition to his other information. The patient will be receiving information from [employer] regarding the LifeVest and how to manage it as well. CC: Dr. Mccarty, [place], [place]; Dr. Cem He * [id number]/[facility] #: [id number] MTDD
--- NOTE | 2016-05-25 03:24 | CATH ---
STENT REPORT: DATE OF PROCEDURE: 05/20/16 - ROOM #[id number] PRIMARY CARE PHYSICIAN: Dr. Mccarty in [place]. PROCEDURES: Right radial artery access, bilateral selective coronary cineangiography, left heart catheterization, left ventriculography, stent placement LAD 4.0 x 28 Synergy drug-eluting stent post dilated to 4.5 mm, 20 atmospheres. HISTORY: This 60-year-old male with prolonged substernal burning discomfort a day prior to admission, presenting with anterolateral ST elevation infarct with late presentation. PROCEDURE ACCESS: Right radial artery sheath 6F slender. MEDICATIONS: 1. Subcu lidocaine. 2. IV Versed. 3. IV Fentanyl. 4. Heparin 3000 units. 5. Nitro 300 mcg. 6. Verapamil 3 mg IA. 7. IV nitroglycerin drip. 8. Continued aspirin 324 mg p.o. 9. Heparin 4000 units IV, 3000 units IV. 10. Brilinta 180 mg p.o. DIAGNOSTIC CATHETERS: 5F TIG4 for RCA, 6F EBU left 3.5 for left coronary, and 5F pigtail. After diagnostic angiography, LAD intervention was performed. The BMW wire fairly easily crossed through the LAD occlusion. A 2.5 x 12 mm balloon was inflated 6 atmospheres 10 seconds after which, a 4.0 x 28 Synergy drug-eluting stent was deployed in the mid LAD, 16 atmospheres 30 seconds, and post dilated with a 4.5 mm noncompliant balloon, 20 atmospheres 30 seconds. LV gram was then performed. LV pressure was 125/15- 20, no aortic valve gradient on pullback. ANGIOGRAPHY: RCA: The RCA is [id number], not dominant, has scattered luminal irregularity with 50% proximal and mid stenosis, each is short. The RCA supplies primarily RV branches. Left main: The left main is relatively short, has no stenosis. LAD: The LAD has a proximal fluid of 50% stenosis, then supplies the first septal and then is occluded. Circumflex. The circumflex is large, there is large ramus, the circumflex supplies a large posterolateral and a large PDA. The circumflex has no significant stenosis. After LAD stent deployment, post dilatation, there is no residual stenosis, MEY 3 flow, the mid LAD beyond the stented segment has a 40% tubular stenosis. LV gram: There is akinesis to dyskinesis of the distal anterior wall, apex, and inferoapical segments. Estimated LVEF 35% to 40%. CONCLUSION: 1. Two-vessel disease with nondominant RCA with moderate stenosis, and culprit mid LAD occlusion, excellent angiographic results with drug-eluting stent placement LAD. 2. Elevated LVEDP, otherwise normal left-sided hemodynamics. 3. LV systolic dysfunction, acute. 4. Successful radial artery access. CC: Dr. Mccarty; Cem He MD * [id number]/[facility] #: [id number] [facility]
== END 2016-05-24 20:10 | disposition home or self-care (01) | DRG 174 ==
LOC: ED 10:55 → ICU 12:48 → MEDTELE 05-23 15:22
PROVIDERS: ADMIT Internal Medicine Cardiovascular Disease; ATTEND Internal Medicine Cardiovascular Disease
PROC: 4A023N7 Measurement of Cardiac Sampling and Pressure, Left Heart, Percutaneous Approach (ICD-10-PCS; 2016-05-20)
PROC: B2111ZZ Fluoroscopy of Multiple Coronary Arteries using Low Osmolar Contrast (ICD-10-PCS; 2016-05-20)
PROC: B2151ZZ Fluoroscopy of Left Heart using Low Osmolar Contrast (ICD-10-PCS; 2016-05-20)
PROC: 027034Z Dilation of Coronary Artery, One Artery with Drug-eluting Intraluminal Device, Percutaneous Approach (ICD-10-PCS; principal; 2016-05-20 13:00)
DX: I21.09 ST elevation (STEMI) myocardial infarction involving other coronary artery of anterior wall (principal); E11.65 Type 2 diabetes mellitus with hyperglycemia; I25.10 Atherosclerotic heart disease of native coronary artery without angina pectoris; F17.210 Nicotine dependence, cigarettes, uncomplicated; E66.9 Obesity, unspecified; E78.5 Hyperlipidemia, unspecified; Z28.21 Immunization not carried out because of patient refusal; Z68.35 Body mass index [BMI] 35.0-35.9, adult; Z82.49 Family history of ischemic heart disease and other diseases of the circulatory system; Z85.46 Personal history of malignant neoplasm of prostate; Z79.82 Long term (current) use of aspirin; Z79.02 Long term (current) use of antithrombotics/antiplatelets; Z79.84 Long term (current) use of oral hypoglycemic drugs
CPT/HCPCS: 36415; 80048; 80053; 80061; 82550; 82553; 83036; 83605; 83721; 83880; 84484; 85025; 85610; 85730; 93005; 93306; 93308; 99221; 99406; A9270-GY; C1725; C1769; C1876; C1887; C8924; C9606-LD; J1644; J1650; J2250; J3010

== ENCOUNTER 2016-10-11 15:53 | Emergency (ER) | payer BC ==
[2016-10-11 16:39] LABS: Hematocrit 42 % (42-52); Hemoglobin 13.7 g/dl (14.0-18.0); Mean Corpuscular HGB Conc 32 g/dl (31-36); Mean Corpuscular Hemoglobin 26 pg (27-31); Mean Corpuscular Volume 81 fL (80-94); Mean Platelet Volume 9 um3 (7.4-10.4); Red Blood Count 5.26 10^6/ul (4.0-5.4); Red Cell Distribution Width 16 % (10.5-15); White Blood Count 13.4 10^3/ul (3.5-10.8)
[2016-10-11 17:02] LABS: Albumin 4.4 g/dL (3.2-5.2); BUN/Creatinine Ratio 22.8 (8-20); Calcium 9.7 mg/dL (8.6-10.3); EGFR African American 107.9 (>60); EGFR Non-African American 83.9 (>60); Globulin 3.1 g/dL (2-4); Potassium 4.1 mmol/L (3.5-5.0); Total Bilirubin 0.6 mg/dL (0.2-1.0); Total Protein 7.5 g/dL (6.4-8.9)
--- NOTE | 2016-10-11 17:27 | RAD ---
INDICATION: Right leg puncture wound COMPARISON: None TECHNIQUE: Axial source images were acquired with coronal and sagittal reconstructions. FINDINGS: There is no acute focal osseous findings. There is osteophyte change about the knee. There is a small amount of subcutaneous emphysema both superficially and along the deep fascial planes at the level of the mid leg with a small, superficial intramuscular hematoma. There is no foreign body. IMPRESSION: SOFT TISSUE INJURY ABOUT THE POSTERIOR MEDIAL CALF WITH A SMALL AMOUNT OF SOFT TISSUE EMPHYSEMA.
[2016-10-11 18:32] VITALS: BP 132/79
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
== END 2016-10-11 18:32 | disposition home or self-care (01) ==
LOC: ED 15:53
DX: S81.831A Puncture wound without foreign body, right lower leg, initial encounter (principal); W22.8XXA Striking against or struck by other objects, initial encounter; Y93.89 Activity, other specified; Y92.9 Unspecified place or not applicable
CPT/HCPCS: 36415; 80053; 83605; 85025; 85610; 85730; 99282

== ENCOUNTER 2017-04-21 17:00 | Emergency (ER) | payer BC ==
[2017-04-21 17:43] LABS: ABS Basophils 0.1 10^3/ul (0-0.2); ABS Eosinophils 0.1 10^3/ul (0-0.6); ABS Lymphocytes 2.1 10^3/ul (1.0-4.8); ABS Monocytes 0.6 10^3/ul (0-0.8); ABS Neutrophils 7.7 10^3/ul (1.5-7.7); ABS Nucleated RBC 0 10^3/ul; Eosinophil % 1.3 % (0-6); Hematocrit 43 % (42-52); Hemoglobin 14.2 g/dl (14.0-18.0); Lymphocyte % 19.6 % (25-47); Mean Corpuscular HGB Conc 33 g/dl (31-36); Mean Corpuscular Hemoglobin 26 pg (27-31); Mean Corpuscular Volume 78 fL (80-94); Mean Platelet Volume 9 um3 (7.4-10.4); Nucleated Red Blood Cells % 0; Platelet Count 248 10^3/ul (150-450); Red Blood Count 5.46 10^6/ul (4.0-5.4); Red Cell Distribution Width 16 % (10.5-15); White Blood Count 10.5 10^3/ul (3.5-10.8)
[2017-04-21 18:03] LABS: EGFR Non-African American 74.2 (>60)
--- NOTE | 2017-04-21 18:26 | RAD ---
Indication: Chest pain, shortness of breath. History of prostate carcinoma. Comparison: No relevant prior exams available on the [facility] [place] for comparison. Technique: Upright AP 1742 hours Report: Elevated lung volumes. No focal pulmonary lesion, compelling alveolar consolidation, pleural effusion, pneumothorax. Upper normal heart size. Unremarkable central pulmonary vasculature and mediastinal contours. IMPRESSION: Elevated lung volumes suggesting obstructive lung disease. No acute cardiopulmonary process evident.
[2017-04-21 18:50] LABS: Urine Appearance Clear; Urine Blood 2+ (Negative); Urine Color Straw; Urine Ketones Negative (Negative); Urine Protein Negative (Negative); Urine Specific Gravity 1.009 (1.010-1.030); Urine Urobilinogen Negative (Negative)
[2017-04-21 19:45] VITALS: BP 128/77
--- NOTE | 2017-04-22 10:56 | ED ---
Elizabeth Rivers Edward, scribed for Markus Chau MD on 04/21/17 at 1745 . Complex/Multi-Sys Presentation - HPI Summary HPI Summary: 61 y/o male presents to the ED c/o general fatigue and weakness for several days. Sx not aggravated or alleviated by anything. Pt is usually active. Associated sx: diarrhea (not watery), SOB, upset stomach. Denies CP, cough, nausea. PMHx [place] in May 2016. Pt states these past few days have felt similar to the days leading up to his [place]. Pt took Cialis yesterday. - History Of Current Complaint Chief Complaint: EDChestPainROMI Time Seen by Provider: 04/21/17 17:13 Hx Obtained From: Patient Onset/Duration: Lasting Days Timing: Constant Associated Signs And Symptoms: Positive: Weakness, SOB, Diarrhea, Other - fatigue. Negative: Cough - Allergies/Home Medications Allergies/Adverse Reactions: Allergies Allergy/AdvReac Type Severity Reaction Status Date / Time No Known Allergies Allergy Verified 10/11/16 15:58 Home Medications: Home Medications Candesartan (NF) [Atacand (NF)] 16 mg PO DAILY 04/21/17 [History Confirmed 04/21] Sildenafil (NF) [Viagra (NF)] 50 - 100 mg PO DAILY PRN 04/21/17 [History Confirmed 04/21/17] PMH/Surg Hx/FS Hx/Imm Hx Previously Healthy: No Cardiovascular History: Reports: Hx Hypercholesterolemia, Hx Myocardial Infarction Denies: Hx Angina, Hx Hypertension History: Reports: Other Problems/Disorders - prostatectomy in 2011 for prostate CA - Cancer History Cancer Type, Location and Year: prostate - Surgical History Surgery Procedure, Year, and Place: prostetectomy in 2011 Hx Anesthesia Reactions: No Infectious Disease History: No Infectious Disease History: Denies: Traveled Outside the [place] in Last 30 Days - Family History Known Family History: Positive: Cardiac Disease, Other - POS: prostate CA - Social History Alcohol Use: None Hx Substance Use: No Substance Use Type: Reports: None Hx Tobacco Use: Yes Smoking Status (MU): Current Every Day Smoker Type: Cigarettes Review of Systems Positive: Fatigue Eyes: Negative ENT: Negative Cardiovascular: Negative Positive: Shortness Of Breath. Negative: Cough Positive: Diarrhea - soft stools, Other - upset stomach. Negative: Nausea Genitourinary: Negative Musculoskeletal: Negative Skin: Negative Positive: Weakness Psychological: Normal All Other Systems Reviewed And Are Negative: Yes Physical Exam - Summary Physical Exam Summary: VITAL SIGNS: Reviewed. GENERAL: Patient is a well-developed and nourished male who is lying comfortable in the stretcher. Patient is not in any acute respiratory distress. HEAD AND FACE: No signs of trauma. No ecchymosis, hematomas or skull depressions. No sinus tenderness. EYES: PERRLA, EOMI x 2, No injected conjunctiva, no nystagmus. EARS: Hearing grossly intact. Ear canals and tympanic membranes are within normal limits. MOUTH: Oropharynx within normal limits. NECK: Supple, trachea is midline, no adenopathy, no JVD, no carotid bruit, no c- spine tenderness, neck with full ROM. CHEST: Symmetric, no tenderness at palpation LUNGS: Clear to auscultation bilaterally. No wheezing or crackles. CVS: Regular rate and rhythm, S1 and S2 present, no murmurs or gallops appreciated. ABDOMEN: Soft, non-tender. No signs of distention. No rebound no guarding, and no masses palpated. Bowel sounds are normal. EXTREMITIES: FROM in all major joints, no edema, no cyanosis or clubbing. NEURO: Alert and oriented x 3. No acute neurological deficits. Speech is normal and follows commands. SKIN: Dry and warm Triage Information Reviewed: Yes Vital Signs On Initial Exam: Initial Vitals Temp Pulse Resp BP Pulse Ox 98.6 F 86 18 146/90 95 04/21/17 17:02 04/21/17 17:02 04/21/17 17:02 04/21/17 17:02 04/21/17 17:02 Vital Signs Reviewed: Yes Diagnostics - Vital Signs Vital Signs Temp Pulse Resp BP Pulse Ox 04/21/17 17:35 94 04/21/17 17:02 98.6 F 86 18 146/90 95 - Laboratory Result Diagrams: 04/21/17 17:28 04/21/17 17:28 Lab Statement: Any lab studies that have been ordered have been reviewed, and results considered in the medical decision making process. - Radiology CXR Xray Interpretation: No Acute Changes - Elevated lung volumes suggesting obstructive lung disease. No acute cardiopulmonary process evident. Radiology Interpretation Completed By: Radiologist - Additional Comments Diagnostic Additional Comments: EKG normal 78 bpm. Q waves in II, and inverted T in V1, V2. Complex Multi-Symp Course/Dx Assessment/Plan: 61 y/o male presents to the ED c/o general fatigue and weakness for several days. Sx not aggravated or alleviated by anything. Pt is usually active. Associated sx: diarrhea (not watery), SOB, upset stomach. Denies CP, cough, nausea. PMHx [place] in May 2016. Pt states these past few days have felt similar to the days leading up to his [place]. Pt took Cialis yesterday. Test results without significant abnormalities except glucose 188. Troponin 0.00. CXR SHOWS Elevated lung volumes suggesting obstructive lung disease. No acute cardiopulmonary process evident. EKG normal 78 bpm. Q waves in II, and inverted T in V1, V2. Pt awaiting flu and awaiting second troponin. Pt will be signed out to Dr. Simon for further workup management. Pt is hemodynamically stable and A&Ox3. - Diagnoses Provider Diagnoses: Weakness Discharge - Discharge Plan Condition: Stable Disposition: OTHER Discharge Disposition Comment: Sign out to Dr. Simon pending repeat trop Referrals: Session Dwayne LOPEZ [Primary Care Provider] - The documentation as recorded by the Elizabeth mcintyre Edward accurately reflects the service I personally performed and the decisions made by me, Markus Chau MD.
--- NOTE | 2017-04-24 04:40 | ED ---
Slick Rivers Abhishek, scribed for Kirt Simon MD on 04/21/17 at 2108 . Progress - Progress Note Progress Note: This patient was signed out from Dr. Chau, pending disposition, awaiting second troponin results. The patients condition is stable and will be discharged to home with Dx of microscopic hematoma and weakness. We recommended a follow up with a urologist. Pt stated in reevaluation that he has hx of microscopic hematuria and that he is a pt of Dr. Lora (Urologist). Pt last visited his urologist two years ago. Course/Dx - Diagnoses Provider Diagnoses: Weakness, Microscopic hematuria The documentation as recorded by the Slick mcintyre Abhishek accurately reflects the service I personally performed and the decisions made by , Kirt Simon MD.
== END 2017-04-21 21:14 | disposition home or self-care (01) ==
LOC: ED 17:00
DX: R53.1 Weakness (principal); R31.29 Other microscopic hematuria; I25.2 Old myocardial infarction; E78.00 Pure hypercholesterolemia, unspecified; F17.210 Nicotine dependence, cigarettes, uncomplicated; Z85.46 Personal history of malignant neoplasm of prostate
CPT/HCPCS: 36415; 71045; 80053; 81003; 81015; 82550; 82553; 83735; 83880; 84443; 84484; 85025; 87502; 93005; 99282

== ENCOUNTER 2017-09-09 08:09 | Day surgery (SDC) | payer BC ==
[~2017-09-09 08:09] MED LIST: Buffered Lidocaine 0.9% SYRIN* 5 ML/SYR SYRINGE INTRADERM ONE; Dexamethasone TAB* 4 MG PO ONE; DiMENhydriNATE IV* 50 MG/ML VIAL IV PUSH PRN; Famotidine IV* 10 MG/ML 2 ML (20 mg) IV ONE; Gabapentin CAP(*) 300 MG PO ONE; Morphine INJ* 2 MG/ML 1 ML CARPUJECT IV PRN; Naloxone* 0.4 MG/ML 1 ML VIAL IV PRN; Ondansetron INJ* 2 MG/ML VIAL ONE; PROCHLORPERAZINE INJ 5 MG/ML 2 ML VIAL IV PRN; Scopolamine 1.5 mg* PATCH TRANSDERM PRN; fentaNYL* 50 MCG/ML 2 ML VIAL (100 MCG VIAL) IV PRN; oxyCODONE/Acetamin 5/325 MG* TAB PO PRN
[2017-09-09] MEDS ORDERED: Dexamethasone IV* 4 MG/ML 1 ML (4 MG) ONE (08:20)
[2017-09-09] MEDS ORDERED: ceFAZolin 2 GM PREMIX (*) 2 GM/50 ML BAG IVPB ONE (08:21)
[2017-09-09] MEDS ORDERED: Buffered Lidocaine 0.9% SYRIN* 5 ML/SYR SYRINGE ONE (08:21)
[2017-09-09] MEDS ORDERED: Gabapentin CAP(*) 300 MG ONE (08:21)
[2017-09-09] MEDS ORDERED: Ondansetron ODT TAB* 4 MG ONE (08:21)
[2017-09-09] MEDS ORDERED: Famotidine IV* 10 MG/ML 2 ML (20 mg) ONE (08:21)
[2017-09-09] MEDS ORDERED: Midazolam* 1 MG/ML 5 ML VIAL (5 MG) ONE (08:26)
[2017-09-09] MEDS ORDERED: fentaNYL* 50 MCG/ML 2 ML VIAL (100 MCG VIAL) ONE (08:26)
[2017-09-09] MEDS ORDERED: Dexamethasone TAB* 4 MG ONE (08:49)
[2017-09-09] MEDS ORDERED: Bupivacaine 0.5% SDV PF* 30ML VIAL ONE (09:11)
[2017-09-09] MEDS ORDERED: KETAMINE HCL* 50 MG/ML 10 ML VIAL ONE (09:30)
[2017-09-09] MEDS ORDERED: PROCHLORPERAZINE INJ 5 MG/ML 2 ML VIAL ONE (09:41)
[2017-09-09] MEDS ORDERED: Lidocaine 2% PF * 5 ML VIAL ONE (09:41)
[2017-09-09] MEDS ORDERED: Propofol* 10 MG/ML 20 ML BTL IV PUSH ONE (09:41)
[2017-09-09] MEDS ORDERED: Morphine INJ* 10 MG/ML 1 ML CARPUJECT ONE (09:41)
[2017-09-09] MEDS ORDERED: Metoprolol Tartrate IV* 1 MG/ML 5 ML VIAL ONE (09:41)
[2017-09-09] MEDS ORDERED: Flumazenil* 0.1 MG/ML 5 ML MDV ONE (10:41)
[2017-09-09 11:56] VITALS: BP 105/79
--- NOTE | 2017-09-09 15:42 | OP ---
DATE OF OPERATION: 09/09/17 - [facility] DATE OF : 55 SURGEON: Cash Muse MD WIRE SPRING RELAY ADJUSTER: MCKENNA Hicks. An surgical supply assistant was needed for the procedure to aid in positioning of the arm and retraction. ANESTHESIOLOGIST: Dr. Cancino. ANESTHESIA: General. 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 OPERATIVE PROCEDURE: Left wrist proximal row carpectomy with radial styloidectomy. INDICATIONS: Jay has a stage 2 SLAC wrist. He has had loss of motion and increasing pain and discomfort over the last year. He has [id number] arthritis in the left scaphoid facet with migration of the proximal pole of the capitate proximally. We talked about risks and benefits including the risk of persistent pain and risk of stiffness, risk of instability at the capitolunate joint and others. He wanted to proceed with surgery. ESTIMATED BLOOD LOSS: 10 mL. COMPLICATIONS: None. FINDINGS: As expected. DESCRIPTION OF PROCEDURE: Jay was seen in the preoperative holding area. The correct side, site and procedure were identified. We came back to the operating room where the arm was prepped and draped in the usual fashion. A time-out was performed. The arm was exsanguinated with the Esmarch and the tourniquet inflated to 250 mmHg. I went ahead and made a dorsal longitudinal incision over the mid portion of the wrist. Dissection was carried down and full-thickness flaps were raised at the retinaculum. I opened up the retinaculum over the third dorsal compartment. The EPL tendon was transposed. I then subperiosteally raised retinacular flaps radial and ulnar. The fifth dorsal compartment likewise was released and transposed and retracted ulnarly together with the fourth dorsal compartment tendons. Once the tendons were all moved out of the way, I went ahead and raised a distally based U- shaped capsular flap exposing the bones of the proximal row. I first excised the lunate in its entirety en bloc. I then excised the triquetrum en bloc. I then had to nip off the proximal pole of the scaphoid until I was able to release enough soft tissue to excise the remainder of the distal pole of the scaphoid to complete the proximal carpectomy. At this point, I examined the wrist and there was impingement between the very arthritic radial styloid and the trapezium. I therefore decided to perform a radial styloidectomy. This was done with the sagittal saw in standard fashion taking care to preserve the origin in the radioscaphocapitate ligament. I then packed some bone wax into the cancellous bony bed created by the styloidectomy. Once this was done, we irrigated out the wound. The capsule was closed with 4- 0 Ethibond suture. The third and fifth dorsal compartment tendons were left transposed and then the retinacular flaps were sewed back together with 4-0 Ethibond suture. The skin was then closed with 3-0 Monocryl and Steri-Strips. I infiltrated the operative area with 0.5% Marcaine . The wounds were dressed and a cock-up wrist splint was applied. Tourniquet was deflated and the hand pinked up immediately. He was then taken to recovery room in stable condition. [id number]/[facility] #: [id number] PAUL
[2017-09-12] MEDS ORDERED: Scopolamine PATCH Remove* 1 NOTE MISC PATCH OFF ONE (07:53)
== END 2017-09-09 12:02 | disposition home or self-care (01) ==
LOC: OR 08:09
PROVIDERS: ATTEND Orthopaedic Surgery Hand Surgery
DX: M19.032 Primary osteoarthritis, left wrist (principal); I25.10 Atherosclerotic heart disease of native coronary artery without angina pectoris; I10 Essential (primary) hypertension; Z72.0 Tobacco use; I25.2 Old myocardial infarction; E78.00 Pure hypercholesterolemia, unspecified; E11.9 Type 2 diabetes mellitus without complications; Z79.84 Long term (current) use of oral hypoglycemic drugs
CPT/HCPCS: A9270-GY; J0690; J0780; J1100; J2250; J2270; J2704; J3010; J3490; J8540

== ENCOUNTER 2018-07-31 08:24 | Observation (INO) | payer BC ==
[2018-07-31 09:06] LABS: ABS Eosinophils 0.1 10^3/ul (0-0.6); ABS Lymphocytes 1.8 10^3/ul (1.0-4.8); ABS Monocytes 0.4 10^3/ul (0-0.8); ABS Neutrophils 6.9 10^3/ul (1.5-7.7); Eosinophil % 0.7 %; Hematocrit 43 % (42-52); Lymphocyte % 19.7 %; Mean Corpuscular HGB Conc 32 g/dL (31-36); Mean Corpuscular Hemoglobin 26 pg (27-31); Mean Corpuscular Volume 80 fL (80-94); Mean Platelet Volume 8.5 fL (7.4-10.4); Platelet Count 272 10^3/uL (150-450); Red Blood Count 5.41 10^6 /uL (4.18-5.48); Red Cell Distribution Width 15 % (10.5-15); White Blood Count 9.3 10^3/uL (3.5-10.8)
--- NOTE | 2018-07-31 09:07 | ED ---
Palpitations / Dysrhythmia - HPI Summary HPI Summary: This patient is a 62 year old male presenting to [facility] with a chief complaint of rapid heart rate and fatigue since yesterday. The patient states he is normally quite active but yesterday was easily fatigued by things that he does normally and has been sleeping more than usual. He states his heart rate on his fit bit was showing rate of 130s. He states he took Viagra at around 3 am. He reports SOB. Pt denies any fever, chills, erythema of eyes, sore throat, CP, cough, abdominal pain, N/V, dysuria, hematuria, myalgia, edema, rash, or dizziness. Patient has a Hx of HI 2 years ago. Vital signs in room are HR 68 BPM and BP 127/74 Metoprolol Tartrate TAB* [Lopressor TAB*] 50 mg PO BID #60 tab 05/24/16 [Rx Confirmed 09/09/17] Nitroglycerin TAB 0.4 MG* 0.4 mg SL Q5M PRN #25 tab 05/24/16 [Rx Confirmed 09/02] Candesartan (NF) [Atacand (NF)] 32 mg PO QAM 04/21/17 [History Confirmed ] Sildenafil (NF) [Viagra (NF)] 50 - 100 mg PO QPM 04/21/17 [History Confirmed 04/28] Aspirin 81 mg CHEW TAB* 81 mg PO QAM 09/02/17 [History Confirmed 09/09/17] Atorvastatin* [Lipitor 80 MG*] 80 mg PO QPM 09/02/17 [History Confirmed 09/09/17 ] Brilinta 60 MG TAB 60 mg PO BID 09/02/17 [History Confirmed 09/09/17] Loratadine [Claritin] 1 tab PO BID PRN 09/02/17 [History Confirmed 09/09/17] Multi Vitamin Adult Gummies 1 tab PO QAM 09/02/17 [History Confirmed 09/09/17] metFORMIN* [Glucophage 500 MG TAB *] 500 mg PO BID 09/02/17 [History Confirmed 09/09/17] - History of Current Complaint Chief Complaint: EDDysrhythmPalp Time Seen by Provider: 07/31/18 08:33 Hx Obtained From: Patient Onset/Duration: Lasting Hours Severity Initially: Mild Severity Currently: Mild Character: Fast Aggravating: Medication Associated Signs & Symptoms: Shortness of Breath - Allergy/Home Medications Allergies/Adverse Reactions: Allergies Allergy/AdvReac Type Severity Reaction Status Date / Time Seasonal Allergies Allergy Eyes Uncoded 07/31/18 08:30 Itchy/Swollen/Red/Watery PMH/Surg Hx/FS Hx/Imm Hx Endocrine/Hematology History: Reports: Hx Diabetes - on medication Cardiovascular History: Reports: Hx Coronary Artery Disease, Hx Hypercholesterolemia, Hx Myocardial Infarction, Other Cardiovascular Problems/ Disorders - Left ventricular systolic dysfunction Denies: Hx Angina, Hx Hypertension Respiratory History: Denies: Other Respiratory Problems/Disorders GI History: Denies: Other GI Disorders History: Reports: Other Problems/Disorders - Prostatectomy in 2011 for prostate Cancer Musculoskeletal History: Reports: Hx Arthritis - Left wrist, osteoarthritis Denies: Other Musculoskeletal History Sensory History: Denies: Hx Contacts or Glasses, Hx Hearing Aid Opthamlomology History: Denies: Hx Contacts or Glasses Neurological History: Denies: Other Neuro Impairments/Disorders - Cancer History Cancer Type, Location and Year: prostate - Surgical History Surgery Procedure, Year, and Place: Prostatectomy in 2011 - [facility]. Right Knee surgery-1984. Cardiac Cath with stent placed 2016. Left eye surgery 2007 Hx Anesthesia Reactions: No Infectious Disease History: No Infectious Disease History: Denies: Traveled Outside the [place] in Last 30 Days - Family History Known Family History: Positive: Cardiac Disease, Other - POS: prostate CA - Social History Alcohol Use: None Hx Substance Use: No Substance Use Type: Reports: None Hx Tobacco Use: Yes Smoking Status (MU): Light Every Day Tobacco Smoker Type: Cigarettes Amount Used/How Often: 10-15 cigarettes per day 20 years Have You Smoked in the Last Year: Yes Review of Systems Positive: Fatigue. Negative: Fever, Chills Negative: Erythema Negative: Sore Throat Positive: Palpitations. Negative: Chest Pain Positive: Shortness Of Breath. Negative: Cough Negative: Abdominal Pain, Vomiting, Nausea Negative: dysuria, hematuria Negative: Myalgia, Edema Negative: Rash Neurological: Other - Neg: Dizziness All Other Systems Reviewed And Are Negative: Yes Physical Exam - Summary Physical Exam Summary: Constitutional: Well-developed, Well-nourished, Alert. (-) Distressed Skin: Warm, Dry HENT: Normocephalic; Atraumatic Eyes: Conjunctiva normal Neck: Musculoskeletal ROM normal neck. (-) JVD, (-) Stridor, (-) Tracheal deviation Cardio: Rhythm regular, rate normal, Heart sounds normal; Intact distal pulses; The pedal pulses are 2+ and symmetric. Radial pulses are 2+ and symmetric. (-) Murmur Pulmonary/Chest wall: Effort normal. (-) Respiratory distress, (-) Wheezes, (-) Rales Abd: Soft, (-) tenderness, (-) Distension, (-) Guarding, (-) Rebound Musculoskeletal: (-) Edema Lymph: (-) Cervical adenopathy Neuro: Alert, Oriented x3 Psych: Mood and affect Normal Triage Information Reviewed: Yes Vital Signs On Initial Exam: Initial Vitals Temp Pulse Resp BP Pulse Ox 96.4 F 73 19 135/85 95 07/31/18 08:27 07/31/18 08:27 07/31/18 08:27 07/31/18 08:27 07/31/18 08:27 Vital Signs Reviewed: Yes Diagnostics - Vital Signs Vital Signs Temp Pulse Resp BP Pulse Ox 07/31/18 08:27 96.4 F 73 19 135/85 95 - Laboratory Result Diagrams: 07/31/18 08:48 07/31/18 08:48 Lab Statement: Any lab studies that have been ordered have been reviewed, and results considered in the medical decision making process. - Radiology CXR Radiology Interpretation Completed By: Radiologist Summary of Radiographic Findings: No active cardiovascular disease is noted. ED Provider has reviewed this report. - EKG 0835 Cardiac Rate: NL EKG Rhythm: Sinus Rhythm - 68 BPM Summary of EKG Findings: Anterolateral Q-waves. No STEMI. 0937 Cardiac Rate: NL EKG Rhythm: Sinus Rhythm - 64 BPM Summary of EKG Findings: No STEMI Course/Dx - Course Course Of Treatment: This patient is a 62 year old male presenting to [facility] with a chief complaint of rapid heart rate and fatigue since yesterday. Differential Dx are viral syndrome, PE, acute coronary sydrome. CXR was unremarkable for cardiopulmonary problems. This patient will be admitted. Dr. Jimenez, Hospitalist, accepted the patient for admission. This plan was discussed with the patient and he was agreeable with this plan. - Diagnoses Provider Diagnoses: Dyspnea on exertion - Physician Notifications Discussed Care Of Patient With: Cash Jimenez - Hospitalist Time Discussed With Above Provider: 11:12 Instructed by Provider To: Admit As Inpatient Discharge - Sign-Out/Discharge Documenting (check all that apply): Patient Departure - Admission Patient Received Moderate/Deep Sedation with Procedure: No - Discharge Plan Condition: Stable Disposition: ADMITTED TO [facility] Referrals: Session Dwayne LOPEZ [Primary Care Provider] - - Attestation Statements Document Initiated by Scribe: Yes Documenting Scribe: Cash Martinez Provider For Whom Scribe is Documenting (Include Credential): Eric Hawkins MD Scribe Attestation: ICash, scribed for Eric Hawkins MD on 07/31/18 at 1225. Status of Scribe Document: Ready
[2018-07-31 09:22] LABS: Albumin 4.4 g/dL (3.2-5.2); Albumin/Globulin Ratio 1.5 (1-3); BUN/Creatinine Ratio 20.4 (8-20); Calcium 9.7 mg/dL (8.6-10.3); EGFR African American 99.6 (>60); EGFR Non-African American 82.3 (>60); Globulin 2.9 g/dL (2-4); Potassium 4.3 mmol/L (3.5-5.0); Total Bilirubin 0.4 mg/dL (0.2-1.0); Total Protein 7.3 g/dL (6.4-8.9)
[2018-07-31] MEDS ORDERED: Acetaminophen TAB* 325 MG PO PRN (12:23)
[2018-07-31] MEDS ORDERED: Dextrose 50% Syringe 50 ML* 25 GM/50 ML SYRINGE IV PUSH PRN (12:33)
[2018-07-31 13:00] LABS: Magnesium 1.9 mg/dL (1.9-2.7)
[2018-07-31 14:39] LABS: TSH (Thyroid Stimulating Horm) 1.22 mcIU/mL (0.34-5.60)
[2018-07-31] MEDS: Enoxaparin(*) 40 MG/0.4 ML SYR SUBCUT SCH (15:45)
--- NOTE | 2018-07-31 16:06 | HP ---
CC: Dr. Resendiz; Dr. Padilla * HISTORY AND PHYSICAL: DATE OF ADMISSION: 07/30/18 PROVIDER: Sheryl Durán NP. ATTENDING PHYSICIAN WHILE IN THE HOSPITAL: Dr. Cash Jimenez.* (DICTATED BY SHERYL DURÁN NP) PRIMARY CARE PROVIDER: Dr. Resendiz. CHIEF COMPLAINT: Shortness of breath with exertion. HISTORY OF PRESENT ILLNESS: Mr. Logan is a 62-year-old male with past medical history significant for an LA on 05/20/16 with stent placement and LAD, history of hyperlipidemia, diabetes type 2, obesity, smoking, tobacco abuse, and history of prostate cancer, who presented to the emergency room with complaints of increased fatigue and dyspnea. The patient reports that he was moving a lot of things in his garage, he was mowing his lawn and doing a lot of activity. The patient reports that yesterday, he felt like he could not take a deep breath, nothing made it better. He does report that it was worse with stress, exertion. He denies any radiation. He reports that the severity of his dyspnea was rated at 9. He reports it lasted for approximately 1 hour. The patient also reports that he generally drinks decaf coffee and over the past couple of days, he has been drinking caffeinated coffee, which he believes could be contributing to his tachycardia and increased shortness of breath. The patient reports he also was working hard for the past 7 to 8 days, 12 to 14 hours a day, very active, moving and lifting a variety of things. He reports that yesterday while push mowing the ditch, he became short of breath and tachycardic, which was abnormal for him. He felt like he needs to stop. He was very fatigued, and after doing those activities, he had to lay down and rest and he slept on and off for the rest of the day. The patient does report that he stopped smoking yesterday, prior that he was smoking a pack of day. He also reports that Saturday morning at approximately 3 a.m., he took a half of Viagra. He does report that he has felt the similar symptoms after taking Viagra as well. Today, the patient reports that he is feeling better. He feels more relaxed and the shortness of breath has subsided. The patient reports that back in May 2016, when he had his LA, he did not experience any chest pain or radiating pain in his chest. His only symptomatology was fatigue and nausea, generalized weakness. He reports that he over the past couple of days has felt similar symptoms as when he had his previous LA, but not to the same extent. While in the emergency room, the patient had routine lab work drawn, which was within normal limits. First and second troponin were 0.00. He has no ST changes on his EKG. Due to his increased exertional shortness of breath, we were asked to see and evaluate him for admission. PAST MEDICAL HISTORY: LA with cardiac stenting on 05/20/16, hyperlipidemia, type 2 diabetes, obesity, tobacco abuse, and prostate cancer. PAST SURGICAL HISTORY: 1. Left wrist surgery. 2. Cardiac catheterization. 3. Right knee surgery. 4. Left eye surgery. 5. Prostatectomy. 6. Tonsillectomy. HOME MEDICATIONS: Include: 1. Metformin 500 mg p.o. b.i.d. 2. Viagra 50 mg p.o. q.p.m. 3. Nitroglycerin 0.4 mg sublingual q.5 minutes as needed for chest pain. 4. Multivitamin 1 tab p.o. daily. 5. Lopressor 50 mg p.o. b.i.d. 6. Claritin 1 tablet b.i.d. p.r.n. 7. Atacand 32 mg p.o. q.a.m. 8. Brilinta 60 mg p.o. b.i.d. 9. Atorvastatin 80 mg p.o. q.p.m. 10. Aspirin 81 mg p.o. daily. ALLERGIES: Seasonal allergies. FAMILY HISTORY: No reported history of coronary artery disease other than with an uncle. No reported history of diabetes. Father and brother, both with prostate cancer. SOCIAL HISTORY: The patient reports he quit smoking yesterday, prior to that he smoked pack a day for 25 plus years. He denies any alcohol or illicit drug use. He is retried. Surrogate decision maker in the event he is unable to make his own decision is his son, Jay. His phone number is [phone]. He is a full code. REVIEW OF SYSTEMS: He denies any fever, unintended weight loss, chest pain, or edema. Denies any cough, hemoptysis. He does report exertional shortness of breath, reports difficulty to take a deep breath. He did report some associated nausea with the shortness of breath. Denies any diarrhea or abdominal pain, gross hematuria, dysuria, focal weakness, or sensory loss. Denies any visual complaints, dysphagia, arthralgias, myalgias, rashes, lesions , open sores, psychosis, or anxiety. PHYSICAL EXAMINATION GENERAL: At this time, Mr. Logan is a 62-year-old who is resting comfortably on the stretcher in the emergency room. He is no acute distress. VITAL SIGNS: Temperature is 96.4, heart rate 73, respirations 19, O2 saturation 95% on room air, and blood pressure 135/85. HEENT: Head is atraumatic and normocephalic. Eyes: EOMs are intact. Sclerae are anicteric and not pale. Oral mucosa appeared to be moist. NECK: Supple. LUNGS: Clear to auscultation bilaterally. No wheezes, rales, or rhonchi. CARDIAC: S1, S2. Regular rate and rhythm. No murmurs, rubs, or gallops. ABDOMEN: Soft and nontender. Bowel sounds are present x4. EXTREMITIES: He is able to move all 4 extremities. There is no clubbing or cyanosis. Pedal pulses are +2 bilaterally. NEUROLOGIC: He is awake, alert, oriented x3. Speech is clear. Thought process is intact. There are no gross focal deficits. SKIN: Intact. DIAGNOSTIC STUDIES AND LAB DATA: WBCs are 9.3, RBCs 5.41, hemoglobin 14.0, hematocrit is 43, platelet count is 272. D-dimer was less than 200. Sodium 136 , potassium 4.3, chloride 104, carbon dioxide was 24, anion gap was 8, BUN was 19, creatinine 0.93, lactic acid 1.8, glucose is 180, calcium 9.7, magnesium currently pending, troponin 0.40, ASTs were 26, ALTs were 41, alkaline phosphatase 65, troponin was 0.00 x2, BNP was 42, TSH is currently pending. He had a chest x-ray, radiologist impression: No active cardiopulmonary disease. He had an electrocardiogram that showed sinus rhythm at a rate of 68. ASSESSMENT AND PLAN: Mr. Logan is a 62-year-old male with past medical history significant for coronary artery disease and myocardial infarction in 2017, status post stenting, who presented to the emergency room with complaints of exertional shortness of breath and generalized fatigue. He will be admitted under observation for: 1. Weakness and fatigue, exertional shortness of breath. We will bring him in and rule out acute coronary syndrome as these are symptoms that he presented with his prior myocardial infarction. We will continue to trend his troponin. He will be monitored on telemetry. I will order exercise nuclear stress test for tomorrow. He will continue his aspirin and metoprolol as previously prescribed. We will continue him on atorvastatin 80 mg p.o. daily. I will get a lipid profile and hemoglobin A1c, which are currently pending. 2. Hypertension. He will continue on metoprolol and Atacand as previously prescribed. 3. Hyperlipidemia. He will continue on atorvastatin 80 mg p.o. daily. 4. Type 2 diabetes. I will order finger sticks a.c. with lispro sliding scale. I will hold his metformin. 5. Coronary artery disease. The patient does have a history of an LA with stenting. We will continue on his Brilinta, Atacand, and metoprolol as previously prescribed as well as atorvastatin and aspirin. 6. Tobacco abuse. The patient reports that he quit smoking yesterday. The patient was encouraged to refrain from smoking due to his history of coronary artery disease and hypertension. 7. FEN. He could have a heart healthy, no caffeine diet. 8. DVT prophylaxis. He will be placed on Lovenox subcu daily. 9. Code status. He is a full code. TIME SPENT: Time spent on this admission was approximately 60 minutes, greater than half of that time was spent at the bedside reviewing the events leading thus far to his hospitalization, performing by physical exam and reviewing my plan of care. I have discussed this with my attending, Dr. Cash Jimenez, he is in agreement with my plan. SHERYL DURÁN, DOMINICK [id number]/[facility] #: [id number] PAUL
[2018-07-31] MEDS ORDERED: Atorvastatin* 80 MG TAB PO SCH (18:00)
[2018-07-31] MEDS: Insulin LISPRO* 1 UNITS UNIT SUBCUT SCH (18:29)
[2018-07-31] MEDS: CMCS:Ticagrelor (NF) 60 MG TAB PO SCH (19:46)
[2018-07-31] MEDS: Metoprolol Tartrate TAB* 50 mg PO SCH (19:46)
[2018-08-01 06:27] LABS: HDL Cholesterol 37.4 mg/dL
[2018-08-01] MEDS ORDERED: Vitamin THERAPEUTIC TAB PO SCH (09:00)
[2018-08-01] MEDS ORDERED: Valsartan TAB* 160 MG PO SCH (09:00)
[2018-08-01] MEDS ORDERED: Aspirin 81 mg CHEW TAB* 81 MG TAB.CHEW PO SCH (09:00)
[2018-08-01] MEDS ORDERED: Cetirizine* 10 MG TAB PO SCH (09:44)
[2018-08-01] MEDS: Insulin LISPRO* 1 UNITS UNIT SUBCUT SCH ×2 (11:11→13:02)
[2018-08-01 12:59] VITALS: BP 116/74
[2018-08-01] MEDS: Enoxaparin(*) 40 MG/0.4 ML SYR SUBCUT SCH (13:03)
[2018-08-01] MEDS: Metoprolol Tartrate TAB* 50 mg PO SCH (13:11)
[2018-08-01] MEDS: CMCS:Ticagrelor (NF) 60 MG TAB PO SCH (13:12)
[2018-08-01] MEDS ORDERED: Nicotine Patch Removal NOTE FOLLOW UP SCH (21:00)
--- NOTE | 2018-08-01 22:32 | DS ---
CC: JESSICA Farley; Dr. Omar Padilla; Dr. Jose David Byers* DISCHARGE SUMMARY: DATE OF ADMISSION: 07/31/18 DATE OF DISCHARGE: 08/01/18 PRIMARY CARE PROVIDER: JESSICA Farley. MEDICAL SUPERVISOR: Dr. Omar Padilla. ATTENDING PHYSICIAN: Dr. Cash Jimenez* (dictated by Margaret Renee NP) PRIMARY DIAGNOSIS: Physical deconditioning causing shortness of breath with exertion. SECONDARY DIAGNOSES: 1. Diabetes mellitus, type 2. 2. Hypertension. 3. Hyperlipidemia. 4. Coronary artery disease. 5. Tobacco use. STUDIES WHILE IN THE HOSPITAL: 1. Chest x-ray on 07/31/18 reads as no active cardiopulmonary disease. 2. EKG on 07/31/18 shows normal sinus rhythm with a rate of 68, QTc 412, T waves in anterior leads. 3. Nuclear cardiac stress test on 08/01/18 reads as there is a large fixed defect involving the apex of the left ventricle. A small amount of sonali- infarct ischemia may be present. Decreased ejection fraction of 35% stressed and 47% at rest. Evaluation of wall motion demonstrates apical paradoxical motion. Assessment is high risk. HISTORY OF PRESENT ILLNESS AND HOSPITAL COURSE: Mr. Logan is a 62-year-old male with past medical history of myocardial infarction in 2017, diabetes, hypertension, hyperlipidemia and tobacco abuse who presented to the emergency room on 07/30/18 with complaints of shortness of breath. Please see the history and physical by Sheryl Durán NP for complete summary of the events leading up to this hospitalization. In short, the patient did have an MO back in 2017 with drug- eluting stent placement at that time. He has not had any cardiac issues since then. The day prior to admission, the patient reported that he was doing a lot of work around his home, moving things in the garage, mowing his lawn and had a generalized increased level of activity. With that increased level of activity, he noted some shortness of breath lasting approximately 1 hour. He does admit that he was doing much more activity than usual and he feels he was doing too much activity. Of note, when he had his MO , he did not experience any chest pain and only symptoms at that point were fatigue, nausea, and generalized weakness, so because of the concern for another MO, he presented to the emergency room. In the emergency room, he had lab work, which was unremarkable. He had negative troponins. There were no acute changes noted on EKG. Due to the patient's cardiac history, he was admitted by the hospitalist service. The patient was monitored on telemetry overnight without any evidence of arrhythmias. He did have a third negative troponin. He was noted to have a normal BNP at 42. He did have a lipid panel showing triglycerides of 233, total cholesterol of 140, LDL of 56 and HDL of 37. The patient underwent a cardiac stress test this morning with results noted above. Due to the high risk assessment, I did call and speak Dr. Byers from Cardiology, who advised that the high risk assessment is simply due to the areas of previous infarct and he did not have any acute concerns as the patient has had negative troponins and a normal EKG. He felt as though it was reasonable to discharge the patient home with followup with his banquet houseperson. Dr. Byers advised that he would see the patient today in consultation, though as the patient wanted to leave before seeing him, then he did not see any problems with that. The patient was also noted to have a hemoglobin A1c of 8.1. I did have a long conversation with the patient and his significant other other about his cardiac history and stressed the importance of smoking cessation. He reports that he did quit smoking 2 days ago and has nicotine replacement at home. He feels as though he will be successful in quitting cigarettes. I stressed to him that smoking will have a very poor effect on his health and his cardiac status. We also discussed his activity. Again, the patient admits that he was doing much more activity than usual and he feels as though his shortness of breath was secondary to the activity. He is noted to be overweight, so I think this is simply due to physical deconditioning. I did speak with the patient about his A1c of 8. He was not sure the last time he had an A1c. We did discussed diet changes and weight loss. The patient has no complaints today. He reports feeling well. Denies any further shortness of breath. He denies any chest pain , diaphoresis, nausea or vomiting. He is anxious to return home. On exam, he has no focal neurological deficits. His heart has a regular rate and rhythm without murmurs, rubs, or gallops. Lung sounds are clear to auscultation without rhonchi, wheezes, or rubs. There is no edema. Physical exam is otherwise benign. Mr. Logan is stable for discharge today. Vital signs are as follows: Temp 97.9 , heart rate 82, respiratory rate 20, oxygen saturation 97% on room air, blood pressure 116/74. DISCHARGE MEDICATIONS: Changed Medications: Metformin 1000 mg p.o. b.i.d., resume on 08/03/18 (previously was 500 mg b.i.d.). Continued Medications: 1. Aspirin 81 mg p.o. daily. 2. Atorvastatin 80 mg p.o. daily. 3. Brilinta 50 mg p.o. b.i.d. 4. Candesartan 32 mg p.o. daily. 5. Metoprolol tartrate 50 mg p.o. b.i.d. 6. Multivitamin 1 tab p.o. daily. 7. Loratadine 1 tab p.o. b.i.d. p.r.n. allergy symptoms. 8. Nitro 0.4 mg sublingual q.5 minutes p.r.n. angina. 9. Sildenafil 50 to 100 mg p.o. daily p.r.n. DISCHARGE PLAN: Mr. Logan will be discharged home. Diet will be heart healthy , diabetic. Activity will be as tolerated. Again, I did discuss diet changes with the patient and he is motivated lose weight he has gained some weight recently. I did also discuss with the patient his activity status, again he is motivated to lose weight, although I have advised him that he should slowly increase his level of activity due to his physical deconditioning at this point. Medications are noted above. I have increased the patient's metformin dosing due to his A1c of 8.1%. He has been advised to hold the metformin for 48 hours as he did receive contrast today during his stress test. He can resume this after 48 hours. He can continue with other usual medications as noted above and I have not made any further changes. He will need to follow up with his primary care provider in 4 to 7 days. He should also follow up with his banquet houseperson. He reports that he has an appointment with Dr. Padilla next month. I have advised him to keep this appointment. The patient has been instructed to return to the emergency room or nearest hospital for any worsening of symptoms, shortness of breath, lightheadedness, dizziness, chest discomfort, high fevers, chills, night sweats, loss of consciousness, or any other worrisome signs or symptoms. DISCHARGE CONDITION: Stable. DISCHARGE DISPOSITION: Home. This is a summarized report of a complex medical history and hospital stay. For further details, please see the entire medical record. TIME SPENT: Approximately 60 minutes was spent on this discharge. MARGARET RENEE, OFFICE MESSENGER HELPER [id number]/[facility] #: [id number] PAUL
[2018-08-02] MEDS ORDERED: Nicotine PATCH 21 MG/24 HR* PATCH TRANSDERM SCH (08:00)
[2018-08-02] MEDS ORDERED: Cetirizine* 10 MG TAB PO SCH (09:00)
[2018-08-02] MEDS ORDERED: LoraTADine TAB(NF) 10 MG TAB (AUTOSUB to CETIRIZINE) PO SCH (10:00)
== END 2018-08-01 14:00 | disposition home or self-care (01) ==
LOC: ED 08:24 → MEDTELE 12:51
PROVIDERS: ADMIT Internal Medicine; ATTEND Internal Medicine
DX: R06.02 Shortness of breath (principal); E11.9 Type 2 diabetes mellitus without complications; I10 Essential (primary) hypertension; E78.5 Hyperlipidemia, unspecified; I25.10 Atherosclerotic heart disease of native coronary artery without angina pectoris; F17.210 Nicotine dependence, cigarettes, uncomplicated; Z79.82 Long term (current) use of aspirin; I25.2 Old myocardial infarction; E66.9 Obesity, unspecified; Z85.46 Personal history of malignant neoplasm of prostate; J30.2 Other seasonal allergic rhinitis; R53.83 Other fatigue
CPT/HCPCS: 36415; 71045; 78452; 80053; 80061; 83036; 83605; 83735; 83880; 84443; 84484; 85025; 85379; 93005; 93017; 96372; 99284; A9270-GY; A9502; G0378; J1650

== ENCOUNTER 2018-11-21 14:16 | Emergency (ER) | payer BC ==
[2018-11-21] MEDS ORDERED: NS 0.9% 1000 ML** 1,000 ML IV ONE (15:18)
--- NOTE | 2018-11-21 15:34 | ED ---
Dizziness - HPI Summary HPI Summary: Pt is a 63 y/o M presenting to the ED with a chief complaint of fatigue/ weakness initially onset last night. He had a prostatectomy a couple of years ago, and takes Viagra every once in a while. Very occasionally, he reacts negatively to Viagra. He took the Viagra on the morning of 11/20/18, and he states he has been fatigued since then. He denies myalgia, SOB, cp N/V, or changes in bowel movements. He notes that he stopped smoking about 4 days ago. Patient states he does have a remote history of having an [place] and is concerned that this is within fatigue represents. Patient does not have any chest pain or dyspnea on exertion. Patient took [employer] today. Patient's medications reviewed this visit. Patient has not talked was cardiology or his primary care by taking Viagra since he had his cardiac event. - History Of Current Complaint Chief Complaint: EDWeakness Stated Complaint: LETHARGIC PER PT Time Seen by Provider: 11/21/18 15:12 Hx Obtained From: Patient Onset/Duration: Still Present, Gradually Timing: Days Severity Initially: Moderate Severity Currently: Moderate Aggravating Factor(s): Other - Viagra Alleviating Factor(s): Nothing Associated Signs And Symptoms: Negative: Nausea, Vomiting, SOB - Allergies/Home Medications Allergies/Adverse Reactions: Allergies Allergy/AdvReac Type Severity Reaction Status Date / Time No Known Drug Allergies Allergy See Comment Verified 07/31/18 13:10 Seasonal Allergies Allergy Eyes Uncoded 07/31/18 08:30 Itchy/Swollen/Red/Watery Home Medications: Home Medications Metoprolol Tartrate TAB* [Lopressor TAB*] 50 mg PO BID 11/21/18 [History Confirmed 11/21/18] Ticagrelor (NF) [Brilinta 60 MG TAB] 60 mg PO BID 11/21/18 [History Confirmed ] metFORMIN* [Glucophage 500 MG TAB *] 500 mg PO BID 11/21/18 [History Confirmed 11/21/18] PMH/Surg Hx/FS Hx/Imm Hx Previously Healthy: Yes Endocrine/Hematology History: Reports: Hx Diabetes - on medication Cardiovascular History: Reports: Hx Coronary Artery Disease, Hx Hypercholesterolemia, Hx Myocardial Infarction, Other Cardiovascular Problems/ Disorders - Left ventricular systolic dysfunction Denies: Hx Angina, Hx Hypertension Respiratory History: Denies: Hx Asthma, Hx Chronic Obstructive Pulmonary Disease (COPD), Other Respiratory Problems/Disorders GI History: Denies: Other GI Disorders History: Reports: Other Problems/Disorders - Prostatectomy in 2011 for prostate Cancer Musculoskeletal History: Reports: Hx Arthritis - Left wrist, osteoarthritis Denies: Other Musculoskeletal History Sensory History: Reports: Hx Contacts or Glasses Denies: Hx Hearing Aid Opthamlomology History: Reports: Hx Contacts or Glasses Neurological History: Denies: Other Neuro Impairments/Disorders - Cancer History Cancer Type, Location and Year: prostate - Surgical History Surgery Procedure, Year, and Place: Prostatectomy in 2011 - [facility]. Right Knee surgery-1984. Cardiac Cath with stent placed 2016. Left eye surgery 2007 Hx Anesthesia Reactions: No Infectious Disease History: No Infectious Disease History: Denies: Traveled Outside the [place] in Last 30 Days - Family History Known Family History: Positive: Cardiac Disease, Other - POS: prostate CA, Non- Contributory - Social History Alcohol Use: None Hx Substance Use: No Substance Use Type: Reports: None Hx Tobacco Use: Yes Smoking Status (MU): Light Every Day Tobacco Smoker Type: Cigarettes Amount Used/How Often: 10-15 cigarettes per day 20 years Have You Smoked in the Last Year: Yes Review of Systems Positive: Fatigue Negative: Shortness Of Breath Negative: Vomiting, Nausea Negative: Myalgia All Other Systems Reviewed And Are Negative: Yes Physical Exam - Summary Physical Exam Summary: Vital Signs Reviewed: Yes A+Ox3, no distress Eyes: Conjunctiva Clear, RANDEE. EOM intact and full ENT: Hearing grossly normal TM x 2 clear, mmoist, uvula midline, no exudate, no erythema Neck: Positive: Supple Respiratory: Positive: No respiratory distress, No accessory muscle use + CTA throughout no w/r Cardiovascular: RRR nl s1, s2 no m/r CBT <2 sec abd soft + BS nt/nd no guarding, no distension Musculoskeletal Exam: WEBER x 4 without difficulty Strength Intact, ROM Intact Neurological: Positive: Alert, + sensation throughout Psychological: Positive: Normal Response To examiner Skin: Positive: no rash, no ecchymosis Triage Information Reviewed: Yes Vital Signs On Initial Exam: Initial Vitals Temp Pulse Resp BP Pulse Ox 97.2 F 92 16 153/92 96 11/21/18 14:18 11/21/18 14:18 11/21/18 14:18 11/21/18 14:18 11/21/18 14:18 Vital Signs Reviewed: Yes Diagnostics - Vital Signs Vital Signs Temp Pulse Resp BP Pulse Ox 11/21/18 14:18 97.2 F 92 16 153/92 96 - Laboratory Result Diagrams: 11/21/18 15:30 11/21/18 15:30 Lab Statement: Any lab studies that have been ordered have been reviewed, and results considered in the medical decision making process. - Radiology CXR Radiology Interpretation Completed By: Radiologist Summary of Radiographic Findings: No active cardiopulmonary disease. ED physician has reviewed this report. 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 No significant change compared to . Re-Evaluation - Re-Evaluation 1st re-eval Re-Evaluation Time: 17:11 Change: Improved Comment: Pt is feeling much better after IV fluids. Patient did have some small by mouth without difficulty. Results were negative and not concerning reviewed with patient. We'll discharge. Encouraged him to hold on his back until he sees his PCP and cartilages. Patient states agreement with plan. Patient given strict return precautions. Dizzy Course/Dx - Course Course Of Treatment: Patient presents because he is very fatigued. Patient states he took Viagra yesterday has been tired since. Patient is concerned this could be a heart attack although he has no chest pain shortness of breath nausea vomiting or diaphoresis. Patient states this has happened in the past when he taken Viagra but only since he had his heart attack. Patient states he also feels very dehydrated hasn't been eating and drinking very much. Vital signs are stable. On exam patient is well-appearing with no focal findings. We 'll check labs give IV fluid chest x-ray and reassess. EKG is not concerning for any acute event. Patient states he feels better "just "knowing that." - Diagnoses Provider Diagnoses: Weakness Discharge ED - Sign-Out/Discharge Documenting (check all that apply): Patient Departure Patient Received Moderate/Deep Sedation with Procedure: No - Discharge Plan Condition: Stable Disposition: HOME Patient Education Materials: Weakness (ED) Referrals: Session JESSICA,Dwayne [Primary Care Provider] - Additional Instructions: - Stay well hydrated. Drink plenty of non-alcoholic, non-caffinated beverages - Eat and drink regular, healthy meals - Take your medications exactly as prescribed. It is recommended you do not take Viagara until you have had a chance to discuss this medication with Dr. Chua and your primary care provider. Contact your doctor to schedule a follow-up appointment early next week If you develop any different or concerning symptoms, it is recommended you contact your doctor or return to the emergency department - Billing Disposition and Condition Condition: STABLE Disposition: Home - Attestation Statements Document Initiated by Scribe: Yes Documenting Scribe: Rosita Grimaldo Provider For Whom Coleen is Documenting (Include Credential): Jolynn Galeas MD. Scribe Attestation: Rosita Rivers, scribed for Jolynn Galeas MD. on 11/22/18 at 2130. Scribe Documentation Reviewed: Yes Provider Attestation: The documentation as recorded by the scribeRosita accurately reflects the service I personally performed and the decisions made by me, Jolynn Galeas MD. Status of Scribe Document: Viewed
[2018-11-21 15:41] LABS: ABS Eosinophils 0.1 10^3/ul (0-0.6); ABS Lymphocytes 1.9 10^3/ul (1.0-4.8); ABS Monocytes 0.7 10^3/ul (0-0.8); ABS Neutrophils 5.2 10^3/ul (1.5-7.7); Eosinophil % 1.4 %; Hematocrit 42 % (42-52); Hemoglobin 14.2 g/dL (14.0-18.0); Lymphocyte % 23.6 %; Mean Corpuscular HGB Conc 34 g/dL (31-36); Mean Corpuscular Hemoglobin 27 pg (27-31); Mean Corpuscular Volume 80 fL (80-94); Mean Platelet Volume 8.4 fL (7.4-10.4); Platelet Count 237 10^3/uL (150-450); Red Cell Distribution Width 16 % (10-15); White Blood Count 7.9 10^3/uL (3.5-10.8)
[2018-11-21 16:04] LABS: Albumin 4.4 g/dL (3.2-5.2); Albumin/Globulin Ratio 1.7 (1-3); BUN/Creatinine Ratio 21.8 (8-20); Calcium 9.6 mg/dL (8.6-10.3); EGFR African American 107.2 (>60); EGFR Non-African American 88.6 (>60); Globulin 2.6 g/dL (2-4); Potassium 4.2 mmol/L (3.5-5.0); Total Bilirubin 0.5 mg/dL (0.2-1.0)
[2018-11-21 17:40] LABS: Urine Appearance Clear; Urine Bacteria Absent (Absent); Urine Bilirubin Negative (Negative); Urine Blood 1+ (Negative); Urine Color Straw; Urine Glucose Negative (Negative); Urine Ketones Negative (Negative); Urine Nitrite Negative (Negative); Urine Protein Negative (Negative); Urine Red Blood Cell 1+(3-5/hpf) (Absent); Urine Specific Gravity 1.006 (1.010-1.030); Urine Squamous Epithelial Cell Present (Absent); Urine Urobilinogen Negative (Negative); Urine White Blood Cell Trace(0-5/hpf) (Absent)
[2018-11-21 18:12] VITALS: BP 134/86
== END 2018-11-21 18:10 | disposition home or self-care (01) ==
LOC: ED 14:16
DX: R53.1 Weakness (principal); E11.9 Type 2 diabetes mellitus without complications; I25.10 Atherosclerotic heart disease of native coronary artery without angina pectoris; E78.00 Pure hypercholesterolemia, unspecified; I25.2 Old myocardial infarction; F17.210 Nicotine dependence, cigarettes, uncomplicated; Z85.46 Personal history of malignant neoplasm of prostate; Z79.82 Long term (current) use of aspirin; Z79.84 Long term (current) use of oral hypoglycemic drugs; Z79.899 Other long term (current) drug therapy
CPT/HCPCS: 36415; 71046; 80053; 81003; 81015; 83605; 83735; 84443; 84484; 85025; 87086; 93005; 96360; 96361; 99284

== ENCOUNTER 2020-09-05 12:49 | Inpatient (IN) ==
[2020-09-05 13:43] LABS: ABS Eosinophils 0.1 10^3/ul (0-0.6); ABS Lymphocytes 1.4 10^3/ul (1.0-4.8); ABS Monocytes 0.5 10^3/ul (0-0.8); ABS Neutrophils 10.3 10^3/ul (1.5-7.7); Eosinophil % 0.5 %; Hematocrit 46 % (42-52); Hemoglobin 14.7 g/dL (14.0-18.0); Lymphocyte % 11.5 %; Mean Corpuscular HGB Conc 32 g/dL (31-36); Mean Corpuscular Hemoglobin 26 pg (27-31); Mean Corpuscular Volume 82 fL (80-94); Mean Platelet Volume 8.4 fL (7.4-10.4); Nucleated Red Blood Cells % 0.1; Platelet Count 240 10^3/uL (150-450); Red Blood Count 5.59 10^6 /uL (4.18-5.48); Red Cell Distribution Width 16 % (10-15); White Blood Count 12.2 10^3/uL (3.5-10.8)
[2020-09-05 13:54] LABS: Anion Gap 8 mmol/L (2-11); Blood Urea Nitrogen 22 mg/dL (6-24); CO2 Carbon Dioxide 24 mmol/L (22-32); Chloride 105 mmol/L (101-111); Glucose 190 mg/dL (70-100); Potassium 4.1 mmol/L (3.5-5.0); Sodium 137 mmol/L (135-145)
[2020-09-05 13:55] LABS: ALT 21 U/L (7-52); AST 15 U/L (13-39); Albumin 4.5 g/dL (3.2-5.2); Albumin/Globulin Ratio 1.5 (1-3); Alkaline Phosphatase 62 U/L (35-149); Calcium 9.9 mg/dL (8.6-10.3); EGFR African American 111.3 (>60); Total Protein 7.5 g/dL (6.4-8.9)
[2020-09-05 14:57] LABS: Acetaminophen < 15 mcg/mL; Alcohol, S < 10 mg/dL (<10); Salicylate < 2.50 mg/dL (<30)
[2020-09-05 15:02] LABS: TSH Ultra Thyroid Stim Horm 0.61 mcIU/mL (0.34-5.60)
[2020-09-05 16:31] LABS: Urine Appearance Clear; Urine Bilirubin Negative (Negative); Urine Blood 2+ (Negative); Urine Color Yellow; Urine Glucose 3+(>=500 mg/dL) (Negative); Urine Ketones 1+ (Negative); Urine Nitrite Negative (Negative); Urine Protein Negative (Negative); Urine Specific Gravity 1.037 (1.002-1.030); Urine Urobilinogen Negative (Negative)
[2020-09-05 16:35] LABS: Urine Bacteria Absent (Absent); Urine Red Blood Cell 2+(6-10/hpf) (Absent); Urine Squamous Epithelial Cell Present (Absent); Urine White Blood Cell Trace(0-5/hpf) (Absent)
[2020-09-05] MEDS ORDERED: levETIRAcetam 1000MG IVPREMIX 1,000 MG/100 ML BAG IVPB ONE (17:03)
[2020-09-05] MEDS ORDERED: Dexamethasone IV 4 MG/ML VIAL 1 ml VIAL IV SLOW PU ONE (17:05)
[2020-09-05 17:32] LABS: Urine Benzodiazepine Screen None Detected (None Detect); Urine Cannabinoids Screen None Detected (None Detect); Urine Opiates Screen None Detected (None Detect)
[2020-09-05] MEDS ORDERED: Dextrose 50% VIAL 50 ml IV PRN (18:15)
[2020-09-05] MEDS ORDERED: NS 0.9% 1000 ml BAG 1,000 ML IV SCH ×2 (18:15→22:50)
[2020-09-05 18:27] LABS: Phosphorus 3.7 mg/dL (2.5-5.0)
[2020-09-05] MEDS ORDERED: Gadoteridol (CONTRAST) 279.3 MG/ML 10 ML IV ONE (20:50)
[2020-09-05 21:02] LABS: INR 1.1 (0.82-1.09)
[2020-09-05] MEDS: Dexamethasone IV 4 MG/ML VIAL 1 ml VIAL IV SLOW PU SCH (23:08)
[2020-09-05] MEDS ORDERED: Prothrombin Complex Conc. DOSE = Units Factor IX (nine) IV SLOW PU ONE (23:15)
[2020-09-06] MEDS: Labetalol IV 5 MG/ML 20 ml VIAL IV PUSH PRN (01:05)
[2020-09-06] MEDS ORDERED: Dexamethasone IV 4 MG/ML VIAL 1 ml VIAL IV SLOW PU SCH (02:00)
[2020-09-06] MEDS: Dexamethasone IV 4 MG/ML VIAL 1 ml VIAL IV SLOW PU SCH ×3 (05:25→18:13)
[2020-09-06] MEDS: levETIRAcetam 500 MG IVPREMIX 500 MG/100 ML BAG IV SCH ×2 (05:25→18:12)
[2020-09-06 05:54] LABS: Hematocrit 45 % (42-52); Hemoglobin 14.8 g/dL (14.0-18.0); Mean Corpuscular HGB Conc 33 g/dL (31-36); Mean Corpuscular Hemoglobin 27 pg (27-31); Mean Corpuscular Volume 81 fL (80-94); Mean Platelet Volume 8.5 fL (7.4-10.4); Platelet Count 264 10^3/uL (150-450); Red Blood Count 5.51 10^6 /uL (4.18-5.48); Red Cell Distribution Width 16 % (10-15); White Blood Count 14.2 10^3/uL (3.5-10.8)
[2020-09-06 06:01] LABS: INR 1.03 (0.82-1.09)
[2020-09-06 06:11] LABS: Calcium 9.9 mg/dL (8.6-10.3); EGFR African American 111.3 (>60); Magnesium 2.1 mg/dL (1.9-2.7); Phosphorus 4.2 mg/dL (2.5-5.0); Potassium 3.7 mmol/L (3.5-5.0)
[2020-09-06] MEDS ORDERED: Iodixanol (CONTRAST) 320 MG/ML 100 ML SDV IV SCH (07:29)
[2020-09-06] MEDS: Nicotine PATCH 7 MG/24 HR PATCH TRANSDERM SCH (12:27)
[2020-09-06] MEDS: Famotidine IV 10 MG/ML 2 ml VIAL (20 mg) IV SLOW PU SCH (20:11)
[2020-09-06 21:49] LABS: Calcium 9.4 mg/dL (8.6-10.3); EGFR African American 123.1 (>60); EGFR Non-African American 101.7 (>60)
[2020-09-07] MEDS: Dexamethasone IV 4 MG/ML VIAL 1 ml VIAL IV SLOW PU SCH ×4 (00:04→16:49)
[2020-09-07 03:36] LABS: Calcium 9.4 mg/dL (8.6-10.3); EGFR African American 117.8 (>60); EGFR Non-African American 97.3 (>60); Potassium 4.1 mmol/L (3.5-5.0)
[2020-09-07] MEDS: levETIRAcetam 500 MG IVPREMIX 500 MG/100 ML BAG IV SCH ×2 (04:09→17:49)
[2020-09-07 05:29] LABS: ABS Basophils 0.1 10^3/ul (0-0.2); ABS Lymphocytes 1.1 10^3/ul (1.0-4.8); ABS Monocytes 0.9 10^3/ul (0-0.8); ABS Neutrophils 16.7 10^3/ul (1.5-7.7); Hematocrit 41 % (42-52); Hemoglobin 13.6 g/dL (14.0-18.0); Lymphocyte % 6.1 %; Mean Corpuscular HGB Conc 33 g/dL (31-36); Mean Corpuscular Hemoglobin 27 pg (27-31); Mean Corpuscular Volume 81 fL (80-94); Mean Platelet Volume 8.4 fL (7.4-10.4); Nucleated Red Blood Cells % 0.1; Platelet Count 254 10^3/uL (150-450); Red Blood Count 5.09 10^6 /uL (4.18-5.48); Red Cell Distribution Width 16 % (10-15); White Blood Count 18.8 10^3/uL (3.5-10.8)
[2020-09-07 05:48] LABS: Calcium 9.3 mg/dL (8.6-10.3); EGFR African American 114.5 (>60); EGFR Non-African American 94.6 (>60); Magnesium 2.3 mg/dL (1.9-2.7); Phosphorus 2.4 mg/dL (2.5-5.0)
[2020-09-07] MEDS: NS 0.9% 1000 ml BAG 1,000 ML IV SCH (07:48)
[2020-09-07] MEDS: Famotidine IV 10 MG/ML 2 ml VIAL (20 mg) IV SLOW PU SCH ×2 (08:05→21:00)
[2020-09-07] MEDS: Nicotine PATCH 7 MG/24 HR PATCH TRANSDERM SCH (08:07)
[2020-09-07] MEDS ORDERED: Perflutren Lipid Microsphere 3 ML VIAL ONE (08:51)
[2020-09-07] MEDS ORDERED: Sodium Phosphate IV 15 MMOLE in NS 0.9% 250 ml 250 ML IVPB ONE (09:00)
[2020-09-07 09:29] LABS: Calcium 9.5 mg/dL (8.6-10.3); EGFR African American 124.9 (>60); EGFR Non-African American 103.3 (>60); Potassium 4.1 mmol/L (3.5-5.0)
[2020-09-07] MEDS ORDERED: Iodixanol (CONTRAST) 320 MG/ML 100 ML SDV IV ONE (09:31)
[2020-09-07 18:36] LABS: Mean Platelet Volume 8.4 fL (7.4-10.4); Platelet Count 260 10^3/uL (150-450)
[2020-09-07 18:54] LABS: Activated Partial Thrombo Time 30.8 seconds (26.0-38.0); INR 1.1 (0.86-1.15)
[2020-09-08] MEDS: Dexamethasone IV 4 MG/ML VIAL 1 ml VIAL IV SLOW PU SCH ×4 (01:21→20:54)
[2020-09-08] MEDS ORDERED: Prothrombin Complex Conc. DOSE = Units Factor IX (nine) IV SLOW PU ONE (06:00)
[2020-09-08] MEDS ORDERED: Buffered Lidocaine 1% SYRIN 1 ml INTRADERM ONE (06:00)
[2020-09-08] MEDS ORDERED: Thrombin 5,000 UNITS 1 APPLIC KIT - topical use - TOPICAL ONE (06:20)
[2020-09-08] MEDS ORDERED: Gelfoam 12-7 ADSORBABL SPONGE ONE (06:21)
[2020-09-08] MEDS ORDERED: Bacitracin OINTMENT TUBE ONE (06:23)
[2020-09-08] MEDS ORDERED: Bacitracin INJECTION (manuf dc) 50,000 UNITS ONE ×2 (06:24→08:12)
[2020-09-08] MEDS ORDERED: Gelfoam Sponge SIZE 100 SPONGE ONE (06:24)
[2020-09-08] MEDS ORDERED: Rocuronium 50 mg VIAL 10 mg/ml 5 ml VIAL (50 mg) ONE (06:34)
[2020-09-08] MEDS ORDERED: Lidocaine 2% PF 5 ML VIAL ONE (06:34)
[2020-09-08] MEDS ORDERED: Propofol 10 MG/ML 20 ML BTL ONE ×6 (06:34→12:21)
[2020-09-08] MEDS ORDERED: fentaNYL 100 mcg/2 ml 50 MCG/ML VIAL ONE (06:35)
[2020-09-08] MEDS ORDERED: Phenylephrine IV 10 MG/ML 1 ml VIAL ONE (06:36)
[2020-09-08] MEDS ORDERED: Phenylephrine 40 mcg/mL 10mL (400mcg) SYRINGE ONE (06:36)
[2020-09-08] MEDS ORDERED: EPHEDrine (Pressors) 50 MG/ML VIAL ONE (06:37)
[2020-09-08] MEDS ORDERED: Remifentanil 2 MG VIAL ONE ×3 (06:43→11:23)
[2020-09-08] MEDS ORDERED: Succinylcholine 200 mg VIAL 20 mg/ml 10 ml VIAL (200 mg) ONE (06:44)
[2020-09-08] MEDS ORDERED: Propofol 10 mg/ml 100 ML BTL 100 ML ONE (06:51)
[2020-09-08] MEDS ORDERED: ceFAZolin 2 GM PREMIX 2 GM/50 ML BAG IVPB ONE (07:00)
[2020-09-08] MEDS: levETIRAcetam 500 MG IVPREMIX 500 MG/100 ML BAG IV SCH ×2 (07:00→18:56)
[2020-09-08] MEDS ORDERED: Gadoteridol (CONTRAST) 279.3 MG/ML 10 ML IV SCH (07:15)
[2020-09-08] MEDS ORDERED: Gadoteridol (CONTRAST) 279.3 MG/ML 10 ML IV ONE (07:15)
[2020-09-08] MEDS ORDERED: levETIRAcetam IV 500 MG/5 ML VIAL ONE (07:46)
[2020-09-08] MEDS ORDERED: Mannitol 25% (12.5 GM) 50 ML 12.5 GM/50 ML VIAL ONE (07:46)
[2020-09-08] MEDS ORDERED: Dexamethasone IV 4 MG/ML VIAL 1 ml VIAL ONE ×3 (08:19→11:41)
[2020-09-08] MEDS ORDERED: Furosemide 20 mg/2 ml IV VIAL ONE (08:22)
[2020-09-08 09:27] LABS: Hematocrit 38 % (42-52); Hemoglobin 12.2 g/dL (14.0-18.0); Mean Corpuscular HGB Conc 33 g/dL (31-36); Mean Corpuscular Hemoglobin 27 pg (27-31); Mean Corpuscular Volume 82 fL (80-94); Mean Platelet Volume 8.7 fL (7.4-10.4); Platelet Count 240 10^3/uL (150-450); Red Blood Count 4.58 10^6 /uL (4.18-5.48); Red Cell Distribution Width 16 % (10-15); White Blood Count 13.5 10^3/uL (3.5-10.8)
[2020-09-08] MEDS ORDERED: Glycopyrrolate IV 0.2 MG/ML 1 ML VIAL ONE ×2 (09:43→10:44)
[2020-09-08 09:51] LABS: Calcium 8.6 mg/dL (8.6-10.3); EGFR African American 108.3 (>60); EGFR Non-African American 89.5 (>60); Magnesium 2.2 mg/dL (1.9-2.7); Phosphorus 4.8 mg/dL (2.5-5.0); Potassium 4.2 mmol/L (3.5-5.0)
[2020-09-08] MEDS ORDERED: HYDROmorphone 1 MG/1 ML SYRINGE ONE (13:05)
[2020-09-08] MEDS ORDERED: Ondansetron 4 mg VIAL 2 MG/ML 2 ml VIAL ONE (13:06)
[2020-09-08] MEDS ORDERED: Polyethylene Glycol 3350 17 GM PACKET PO PRN (13:41)
[2020-09-08] MEDS ORDERED: Morphine 2 MG/ML SYRINGE IV PRN (13:41)
[2020-09-08] MEDS ORDERED: fentaNYL 100 mcg/2 ml 50 MCG/ML VIAL IV PRN (14:05)
[2020-09-08] MEDS ORDERED: HYDROmorphone 1 MG/1 ML SYRINGE IV PRN (14:05)
[2020-09-08] MEDS ORDERED: Ondansetron 4 mg VIAL 2 MG/ML 2 ml VIAL IV PRN ×2 (14:05→14:41)
[2020-09-08] MEDS ORDERED: Naloxone 0.4 mg VIAL 0.4 mg/ml 1 ml VIAL IV PRN (14:05)
[2020-09-08] MEDS: Famotidine IV 10 MG/ML 2 ml VIAL (20 mg) IV SLOW PU SCH ×2 (14:47→20:56)
[2020-09-08] MEDS: Nicotine PATCH 7 MG/24 HR PATCH TRANSDERM SCH (14:47)
[2020-09-08] MEDS: Acetaminophen IV 1 GM/100ML 100 ML IV SCH ×2 (15:11→23:38)
[2020-09-08] MEDS: ceFAZolin 2 GM PREMIX 2 GM/50 ML BAG IVPB SCH (15:36)
[2020-09-08] MEDS ORDERED: Dexamethasone IV 4 MG/ML VIAL 1 ml VIAL IV SLOW PU SCH (18:00)
[2020-09-08] MEDS: NS 0.9% 1000 ml BAG 1,000 ML IV SCH (19:15)
[2020-09-08] MEDS: Magnesium Hydroxide LIQ 30 ML UDC PO SCH (23:23)
[2020-09-09] MEDS: ceFAZolin 2 GM PREMIX 2 GM/50 ML BAG IVPB SCH ×3 (01:12→17:31)
[2020-09-09] MEDS: Dexamethasone IV 4 MG/ML VIAL 1 ml VIAL IV SLOW PU SCH ×3 (03:11→17:32)
[2020-09-09] MEDS: levETIRAcetam 500 MG IVPREMIX 500 MG/100 ML BAG IV SCH ×2 (05:05→17:31)
[2020-09-09 06:31] LABS: ABS Lymphocytes 0.8 10^3/ul (1.0-4.8); ABS Monocytes 1.1 10^3/ul (0-0.8); ABS Neutrophils 13.6 10^3/ul (1.5-7.7); Hematocrit 37 % (42-52); Hemoglobin 12.3 g/dL (14.0-18.0); Lymphocyte % 5.3 %; Mean Corpuscular HGB Conc 33 g/dL (31-36); Mean Corpuscular Hemoglobin 27 pg (27-31); Mean Corpuscular Volume 82 fL (80-94); Mean Platelet Volume 8.6 fL (7.4-10.4); Platelet Count 199 10^3/uL (150-450); Red Blood Count 4.53 10^6 /uL (4.18-5.48); Red Cell Distribution Width 16 % (10-15); White Blood Count 15.5 10^3/uL (3.5-10.8)
[2020-09-09 06:40] LABS: Calcium 8.4 mg/dL (8.6-10.3); EGFR African American 117.8 (>60); EGFR Non-African American 97.3 (>60); Magnesium 2.3 mg/dL (1.9-2.7); Potassium 3.5 mmol/L (3.5-5.0)
[2020-09-09] MEDS: Acetaminophen IV 1 GM/100ML 100 ML IV SCH ×3 (07:43→22:43)
[2020-09-09] MEDS: Famotidine IV 10 MG/ML 2 ml VIAL (20 mg) IV SLOW PU SCH ×2 (07:44→21:17)
[2020-09-09] MEDS: Pantoprazole VIAL 40 MG VIAL IV SCH (07:44)
[2020-09-09] MEDS: Magnesium Hydroxide LIQ 30 ML UDC PO SCH ×2 (08:04→21:42)
[2020-09-09] MEDS: Nicotine PATCH 7 MG/24 HR PATCH TRANSDERM SCH (08:13)
[2020-09-09] MEDS ORDERED: NS 0.9% 1000 ml BAG 1,000 ML IV SCH (09:03)
[2020-09-09] MEDS ORDERED: Buffered Lidocaine 1% SYRIN 1 ml INTRADERM ONE (13:13)
[2020-09-09] MEDS: KCL 20 MEQ/100 ML IVPREMIX 20 MEQ/100 ML BAG IV SCH ×2 (13:30→16:41)
[2020-09-09 17:07] LABS: Calcium 8.8 mg/dL (8.6-10.3); EGFR African American 121.3 (>60); EGFR Non-African American 100.2 (>60); Magnesium 2.4 mg/dL (1.9-2.7); Potassium 3.9 mmol/L (3.5-5.0)
[2020-09-10] MEDS: ceFAZolin 2 GM PREMIX 2 GM/50 ML BAG IVPB SCH ×4 (00:11→23:42)
[2020-09-10] MEDS: Dexamethasone IV 4 MG/ML VIAL 1 ml VIAL IV SLOW PU SCH ×4 (00:11→23:42)
[2020-09-10] MEDS: levETIRAcetam 500 MG IVPREMIX 500 MG/100 ML BAG IV SCH (04:35)
[2020-09-10] MEDS: Labetalol IV 5 MG/ML 20 ml VIAL IV PUSH PRN (05:07)
[2020-09-10 05:49] LABS: ABS Lymphocytes 1.2 10^3/ul (1.0-4.8); ABS Monocytes 0.6 10^3/ul (0-0.8); ABS Neutrophils 10.6 10^3/ul (1.5-7.7); Hematocrit 36 % (42-52); Hemoglobin 11.6 g/dL (14.0-18.0); Lymphocyte % 9.7 %; Mean Corpuscular HGB Conc 32 g/dL (31-36); Mean Corpuscular Hemoglobin 27 pg (27-31); Mean Corpuscular Volume 82 fL (80-94); Mean Platelet Volume 8.6 fL (7.4-10.4); Platelet Count 193 10^3/uL (150-450); Red Blood Count 4.36 10^6 /uL (4.18-5.48); Red Cell Distribution Width 16 % (10-15); White Blood Count 12.5 10^3/uL (3.5-10.8)
[2020-09-10 06:07] LABS: Calcium 8.7 mg/dL (8.6-10.3); EGFR African American 139.7 (>60); EGFR Non-African American 115.4 (>60); Magnesium 2.2 mg/dL (1.9-2.7); Phosphorus 2.9 mg/dL (2.5-5.0); Potassium 3.8 mmol/L (3.5-5.0)
[2020-09-10] MEDS ORDERED: KCL 20 MEQ/100 ML IVPREMIX 20 MEQ/100 ML BAG IV ONE (07:57)
[2020-09-10] MEDS: Pantoprazole VIAL 40 MG VIAL IV SCH (08:13)
[2020-09-10] MEDS: Magnesium Hydroxide LIQ 30 ML UDC PO SCH ×2 (08:13→21:16)
[2020-09-10] MEDS: Nicotine PATCH 7 MG/24 HR PATCH TRANSDERM SCH (08:30)
[2020-09-10] MEDS: Enoxaparin 40 MG/0.4 ML SYR SUBCUT SCH (11:23)
[2020-09-10] MEDS: NS 0.9% 1000 ml BAG 1,000 ML IV SCH (14:16)
[2020-09-11 06:24] LABS: ABS Lymphocytes 1.6 10^3/ul (1.0-4.8); ABS Monocytes 0.7 10^3/ul (0-0.8); ABS Neutrophils 8.8 10^3/ul (1.5-7.7); Hematocrit 34 % (42-52); Hemoglobin 11.5 g/dL (14.0-18.0); Lymphocyte % 14.2 %; Mean Corpuscular HGB Conc 33 g/dL (31-36); Mean Corpuscular Hemoglobin 27 pg (27-31); Mean Corpuscular Volume 80 fL (80-94); Mean Platelet Volume 8.8 fL (7.4-10.4); Platelet Count 173 10^3/uL (150-450); Red Blood Count 4.28 10^6 /uL (4.18-5.48); Red Cell Distribution Width 15 % (10-15); White Blood Count 11.1 10^3/uL (3.5-10.8)
[2020-09-11 06:42] LABS: Calcium 8.6 mg/dL (8.6-10.3); EGFR Non-African American 130.6 (>60); Magnesium 2.2 mg/dL (1.9-2.7); Phosphorus 3.1 mg/dL (2.5-5.0); Potassium 4.2 mmol/L (3.5-5.0)
[2020-09-11] MEDS: Pantoprazole VIAL 40 MG VIAL IV SCH (08:20)
[2020-09-11] MEDS: Dexamethasone IV 4 MG/ML VIAL 1 ml VIAL IV SLOW PU SCH ×3 (08:20→23:01)
[2020-09-11] MEDS: Magnesium Hydroxide LIQ 30 ML UDC PO SCH ×2 (08:20→21:37)
[2020-09-11] MEDS: ceFAZolin 2 GM PREMIX 2 GM/50 ML BAG IVPB SCH (08:21)
[2020-09-11] MEDS: Nicotine PATCH 7 MG/24 HR PATCH TRANSDERM SCH (08:21)
[2020-09-11] MEDS: Enoxaparin 40 MG/0.4 ML SYR SUBCUT SCH (10:30)
[2020-09-11] MEDS ORDERED: Labetalol IV 5 MG/ML 20 ml VIAL IV PUSH PRN (11:13)
[2020-09-11] MEDS: NS 0.9% 1000 ml BAG 1,000 ML IV SCH (14:29)
[2020-09-11 18:42] LABS: Calcium 8.9 mg/dL (8.6-10.3); EGFR African American 137.4 (>60); EGFR Non-African American 113.5 (>60); Potassium 4.1 mmol/L (3.5-5.0)
[2020-09-12 04:38] LABS: ABS Lymphocytes 1.7 10^3/ul (1.0-4.8); ABS Neutrophils 12.5 10^3/ul (1.5-7.7); Eosinophil % 0.1 %; Hematocrit 36 % (42-52); Hemoglobin 11.9 g/dL (14.0-18.0); Lymphocyte % 10.9 %; Mean Corpuscular HGB Conc 34 g/dL (31-36); Mean Corpuscular Hemoglobin 27 pg (27-31); Mean Corpuscular Volume 80 fL (80-94); Platelet Count 184 10^3/uL (150-450); Red Blood Count 4.42 10^6 /uL (4.18-5.48); Red Cell Distribution Width 15 % (10-15); White Blood Count 15.2 10^3/uL (3.5-10.8)
[2020-09-12 04:56] LABS: Calcium 8.5 mg/dL (8.6-10.3); EGFR African American 185.3 (>60); EGFR Non-African American 153.2 (>60); Magnesium 1.9 mg/dL (1.9-2.7); Phosphorus 3.1 mg/dL (2.5-5.0); Potassium 3.9 mmol/L (3.5-5.0)
[2020-09-12] MEDS ORDERED: Calcium Gluconate 2 GM in NS 0.9% 100 ml BAG 100 ML IV ONE (07:41)
[2020-09-12] MEDS ORDERED: Magnesium Sulfate IV 1GM/100ML 1 GM/100 ML BAG IV ONE (07:41)
[2020-09-12] MEDS: Dexamethasone IV 4 MG/ML VIAL 1 ml VIAL IV SLOW PU SCH ×3 (08:30→23:52)
[2020-09-12] MEDS: Magnesium Hydroxide LIQ 30 ML UDC PO SCH ×2 (08:31→19:36)
[2020-09-12] MEDS: Pantoprazole VIAL 40 MG VIAL IV SCH (08:31)
[2020-09-12] MEDS: Nicotine PATCH 7 MG/24 HR PATCH TRANSDERM SCH (08:59)
[2020-09-12] MEDS: Enoxaparin 40 MG/0.4 ML SYR SUBCUT SCH (10:53)
[2020-09-13 06:41] LABS: ABS Lymphocytes 2.1 10^3/ul (1.0-4.8); ABS Monocytes 1.2 10^3/ul (0-0.8); ABS Neutrophils 12.8 10^3/ul (1.5-7.7); Eosinophil % 0.2 %; Hematocrit 39 % (42-52); Hemoglobin 12.8 g/dL (14.0-18.0); Lymphocyte % 13.2 %; Mean Corpuscular HGB Conc 33 g/dL (31-36); Mean Corpuscular Hemoglobin 27 pg (27-31); Mean Corpuscular Volume 81 fL (80-94); Mean Platelet Volume 9.5 fL (7.4-10.4); Platelet Count 188 10^3/uL (150-450); Red Blood Count 4.83 10^6 /uL (4.18-5.48); Red Cell Distribution Width 15 % (10-15); White Blood Count 16.2 10^3/uL (3.5-10.8)
[2020-09-13 06:58] LABS: Calcium 9.3 mg/dL (8.6-10.3); EGFR African American 121.3 (>60); EGFR Non-African American 100.2 (>60); Magnesium 1.8 mg/dL (1.9-2.7); Phosphorus 3.3 mg/dL (2.5-5.0); Potassium 4.3 mmol/L (3.5-5.0)
[2020-09-13] MEDS ORDERED: Magnesium Sulfate 2 gm BAG 2 GM/50 ML BAG IVPB ONE (07:48)
[2020-09-13] MEDS: Dexamethasone IV 4 MG/ML VIAL 1 ml VIAL IV SLOW PU SCH ×2 (08:00→15:36)
[2020-09-13] MEDS: Pantoprazole VIAL 40 MG VIAL IV SCH (08:01)
[2020-09-13] MEDS: Magnesium Hydroxide LIQ 30 ML UDC PO SCH ×2 (08:18→21:00)
[2020-09-13] MEDS: Enoxaparin 40 MG/0.4 ML SYR SUBCUT SCH (10:45)
[2020-09-13] MEDS: Nicotine PATCH 7 MG/24 HR PATCH TRANSDERM SCH (16:51)
[2020-09-14] MEDS: Dexamethasone IV 4 MG/ML VIAL 1 ml VIAL IV SLOW PU SCH ×2 (00:29→09:27)
[2020-09-14 05:20] LABS: ABS Basophils 0.1 10^3/ul (0-0.2); ABS Lymphocytes 1.5 10^3/ul (1.0-4.8); ABS Monocytes 0.7 10^3/ul (0-0.8); ABS Neutrophils 11.1 10^3/ul (1.5-7.7); Eosinophil % 0.2 %; Hematocrit 38 % (42-52); Hemoglobin 12.5 g/dL (14.0-18.0); Lymphocyte % 11.1 %; Mean Corpuscular HGB Conc 34 g/dL (31-36); Mean Corpuscular Hemoglobin 27 pg (27-31); Mean Corpuscular Volume 80 fL (80-94); Mean Platelet Volume 9.3 fL (7.4-10.4); Platelet Count 190 10^3/uL (150-450); Red Blood Count 4.67 10^6 /uL (4.18-5.48); Red Cell Distribution Width 15 % (10-15); White Blood Count 13.4 10^3/uL (3.5-10.8)
[2020-09-14 05:38] LABS: Calcium 9.1 mg/dL (8.6-10.3); EGFR African American 152.3 (>60); EGFR Non-African American 125.9 (>60); Magnesium 1.8 mg/dL (1.9-2.7); Phosphorus 3.5 mg/dL (2.5-5.0); Potassium 4.4 mmol/L (3.5-5.0)
[2020-09-14] MEDS ORDERED: Magnesium Sulfate 2 gm BAG 2 GM/50 ML BAG IVPB ONE (07:33)
[2020-09-14] MEDS: Pantoprazole VIAL 40 MG VIAL IV SCH (08:05)
[2020-09-14] MEDS: Magnesium Hydroxide LIQ 30 ML UDC PO SCH ×2 (08:05→21:18)
[2020-09-14] MEDS: Nicotine PATCH 7 MG/24 HR PATCH TRANSDERM SCH (09:42)
[2020-09-14] MEDS: Enoxaparin 40 MG/0.4 ML SYR SUBCUT SCH (11:09)
[2020-09-15 06:20] LABS: ABS Eosinophils 0.1 10^3/ul (0-0.6); ABS Lymphocytes 2.7 10^3/ul (1.0-4.8); ABS Monocytes 1.2 10^3/ul (0-0.8); Eosinophil % 0.9 %; Hematocrit 38 % (42-52); Hemoglobin 12.5 g/dL (14.0-18.0); Lymphocyte % 20.6 %; Mean Corpuscular HGB Conc 33 g/dL (31-36); Mean Corpuscular Hemoglobin 27 pg (27-31); Mean Corpuscular Volume 80 fL (80-94); Mean Platelet Volume 9.4 fL (7.4-10.4); Platelet Count 208 10^3/uL (150-450); Red Blood Count 4.72 10^6 /uL (4.18-5.48); Red Cell Distribution Width 15 % (10-15)
[2020-09-15 06:34] LABS: EGFR African American 139.7 (>60); EGFR Non-African American 115.4 (>60); Phosphorus 3.1 mg/dL (2.5-5.0); Potassium 4.1 mmol/L (3.5-5.0)
[2020-09-15 07:43] VITALS: BP 113/74
[2020-09-15] MEDS: Nicotine PATCH 7 MG/24 HR PATCH TRANSDERM SCH (09:15)
[2020-09-15] MEDS: Pantoprazole VIAL 40 MG VIAL IV SCH (09:15)
[2020-09-15] MEDS: Magnesium Hydroxide LIQ 30 ML UDC PO SCH (09:15)
== END 2020-09-15 11:20 | disposition home health service (06) | DRG 21 ==
LOC: ED 12:49 → ICU 17:45 → SSU 09-12 11:27
PROVIDERS: ADMIT Surgery Surgical Critical Care; ATTEND Internal Medicine

== ENCOUNTER 2020-10-12 19:24 | Inpatient (IN) ==
[2020-10-12] MEDS ORDERED: NS 0.9% 1000 ml BAG 1,000 ML IV ONE ×2 (20:05→22:47)
[2020-10-12] MEDS ORDERED: Acetaminophen PED 160 mg/5 ml UDC PO ONE (20:34)
[2020-10-12 21:31] LABS: ABS Eosinophils 0.1 10^3/ul (0-0.6); ABS Lymphocytes 0.4 10^3/ul (1.0-4.8); ABS Monocytes 0.5 10^3/ul (0-0.8); Hematocrit 39 % (42-52); Lymphocyte % 4.6 %; Mean Corpuscular HGB Conc 33 g/dL (31-36); Mean Corpuscular Hemoglobin 27 pg (27-31); Mean Corpuscular Volume 81 fL (80-94); Mean Platelet Volume 8.5 fL (7.4-10.4); Platelet Count 264 10^3/uL (150-450); Red Blood Count 4.83 10^6 /uL (4.18-5.48); Red Cell Distribution Width 16 % (10-15); White Blood Count 9.1 10^3/uL (3.5-10.8)
[2020-10-12 21:38] LABS: Activated Partial Thrombo Time 26.6 seconds (26.0-38.0); INR 1.33 (0.86-1.15)
[2020-10-12 21:51] LABS: Albumin 3.4 g/dL (3.2-5.2); Albumin/Globulin Ratio 1.2 (1-3); C Reactive Protein 53.97 mg/L (<8.01); Calcium 8.2 mg/dL (8.6-10.3); EGFR African American 62.8 (>60); EGFR Non-African American 51.9 (>60); Globulin 2.9 g/dL (2-4); Potassium 4.1 mmol/L (3.5-5.0); Total Bilirubin 0.5 mg/dL (0.2-1.0); Total Protein 6.3 g/dL (6.4-8.9)
[2020-10-12 22:10] LABS: Troponin I 0.02 ng/mL (<0.03)
[2020-10-12] MEDS ORDERED: Ondansetron 4 mg VIAL 2 MG/ML 2 ml VIAL IV PRN (23:28)
[2020-10-12] MEDS ORDERED: NS 0.9% 1000 ml BAG 1,000 ML IV SCH (23:45)
[2020-10-13] MEDS: Enoxaparin 40 MG/0.4 ML SYR SUBCUT SCH ×2 (00:25→21:41)
[2020-10-13] MEDS ORDERED: Dextrose 50% Syringe 50 ml 25 GM/50 ML SYRINGE IV PUSH PRN (03:13)
[2020-10-13 03:29] LABS: Urine Appearance Cloudy; Urine Bilirubin Negative (Negative); Urine Blood Negative (Negative); Urine Color Yellow; Urine Glucose 3+(>=500 mg/dL) (Negative); Urine Ketones Trace (Negative); Urine Nitrite Negative (Negative); Urine Protein 1+(30 mg/dL) (Negative); Urine Specific Gravity 1.028 (1.002-1.030); Urine Urobilinogen Negative (Negative)
[2020-10-13 03:43] LABS: Urine Bacteria Absent (Absent); Urine Red Blood Cell 1+(3-5/hpf) (Absent); Urine Squamous Epithelial Cell Present (Absent); Urine White Blood Cell Trace(0-5/hpf) (Absent)
[2020-10-13 04:26] LABS: ABS Lymphocytes 0.2 10^3/ul (1.0-4.8); ABS Monocytes 0.2 10^3/ul (0-0.8); ABS Neutrophils 7.9 10^3/ul (1.5-7.7); Eosinophil % 0.6 %; Hematocrit 37 % (42-52); Hemoglobin 12.3 g/dL (14.0-18.0); Lymphocyte % 2.2 %; Mean Corpuscular HGB Conc 33 g/dL (31-36); Mean Corpuscular Hemoglobin 27 pg (27-31); Mean Corpuscular Volume 82 fL (80-94); Mean Platelet Volume 8.2 fL (7.4-10.4); Platelet Count 206 10^3/uL (150-450); Red Blood Count 4.55 10^6 /uL (4.18-5.48); Red Cell Distribution Width 16 % (10-15); White Blood Count 8.4 10^3/uL (3.5-10.8)
[2020-10-13 04:32] LABS: INR 1.37 (0.86-1.15)
[2020-10-13 04:41] LABS: Calcium 7.7 mg/dL (8.6-10.3); EGFR Non-African American 72.7 (>60); Magnesium 1.8 mg/dL (1.9-2.7)
[2020-10-13] MEDS: Nicotine PATCH 14 MG/24 HR PATCH TRANSDERM SCH (09:20)
[2020-10-13] MEDS ORDERED: Gadoteridol (CONTRAST) 279.3 MG/ML 10 ML IV ONE (16:56)
[2020-10-13] MEDS ORDERED: Sulfamethox/Trimethoprim DS TAB 800/160 mg PO SCH (21:00)
[2020-10-13] MEDS: Sulfamethoxazole/Trimeth IV 160 MG in D5W 250 ml BAG 250 ML IVPB SCH (21:43)
[2020-10-14 06:56] LABS: ABS Eosinophils 0.1 10^3/ul (0-0.6); ABS Lymphocytes 0.5 10^3/ul (1.0-4.8); ABS Monocytes 0.7 10^3/ul (0-0.8); ABS Neutrophils 4.9 10^3/ul (1.5-7.7); Eosinophil % 2.4 %; Hematocrit 34 % (42-52); Hemoglobin 11.4 g/dL (14.0-18.0); Lymphocyte % 7.8 %; Mean Corpuscular HGB Conc 34 g/dL (31-36); Mean Corpuscular Hemoglobin 27 pg (27-31); Mean Corpuscular Volume 80 fL (80-94); Mean Platelet Volume 8.2 fL (7.4-10.4); Platelet Count 216 10^3/uL (150-450); Red Blood Count 4.21 10^6 /uL (4.18-5.48); Red Cell Distribution Width 16 % (10-15); White Blood Count 6.2 10^3/uL (3.5-10.8)
[2020-10-14 07:11] LABS: Calcium 7.9 mg/dL (8.6-10.3); EGFR African American 144.5 (>60); EGFR Non-African American 119.4 (>60); Potassium 3.6 mmol/L (3.5-5.0)
[2020-10-14] MEDS ORDERED: Potassium Chlor 20 meq TAB.ER PO ONE (08:32)
[2020-10-14] MEDS: Nicotine PATCH 14 MG/24 HR PATCH TRANSDERM SCH (09:45)
[2020-10-14] MEDS: Sulfamethoxazole/Trimeth IV 160 MG in D5W 250 ml BAG 250 ML IVPB SCH ×2 (10:14→21:53)
[2020-10-14] MEDS ORDERED: NS 0.9% 1000 ml BAG 1,000 ML IV SCH (11:36)
[2020-10-14] MEDS ORDERED: Insulin GLARGINE 100 un/ml 10 ml VIAL SUBCUT SCH (21:00)
[2020-10-14] MEDS: Enoxaparin 40 MG/0.4 ML SYR SUBCUT SCH (21:01)
[2020-10-15 06:44] LABS: ABS Eosinophils 0.2 10^3/ul (0-0.6); ABS Lymphocytes 0.7 10^3/ul (1.0-4.8); ABS Monocytes 0.7 10^3/ul (0-0.8); ABS Neutrophils 5.7 10^3/ul (1.5-7.7); Eosinophil % 2.1 %; Hematocrit 34 % (42-52); Hemoglobin 11.4 g/dL (14.0-18.0); Lymphocyte % 9.8 %; Mean Corpuscular HGB Conc 34 g/dL (31-36); Mean Corpuscular Hemoglobin 27 pg (27-31); Mean Corpuscular Volume 79 fL (80-94); Mean Platelet Volume 8.2 fL (7.4-10.4); Platelet Count 212 10^3/uL (150-450); Red Blood Count 4.26 10^6 /uL (4.18-5.48); Red Cell Distribution Width 16 % (10-15); White Blood Count 7.3 10^3/uL (3.5-10.8)
[2020-10-15 07:01] LABS: EGFR African American 139.7 (>60); EGFR Non-African American 115.4 (>60); Magnesium 1.8 mg/dL (1.9-2.7); Potassium 3.7 mmol/L (3.5-5.0)
[2020-10-15] MEDS ORDERED: Potassium Chlor 20 meq TAB.ER PO SCH (09:00)
[2020-10-15] MEDS: Nicotine PATCH 14 MG/24 HR PATCH TRANSDERM SCH (09:15)
[2020-10-15] MEDS: Sulfamethoxazole/Trimeth IV 160 MG in D5W 250 ml BAG 250 ML IVPB SCH (09:19)
[2020-10-15 15:37] VITALS: BP 120/69
== END 2020-10-15 17:15 | disposition home or self-care (01) | DRG 864 ==
LOC: ED 19:24 → MED 23:28 → MEDTELE 10-15 12:20
PROVIDERS: ADMIT Internal Medicine; ATTEND Hospitalist

== ENCOUNTER 2020-10-20 07:08 | Inpatient (IN) ==
[2020-10-20] MEDS ORDERED: NS 0.9% 1000 ml BAG 1,000 ML IV ONE (07:38)
[2020-10-20 07:52] LABS: Hematocrit 42 % (42-52); Hemoglobin 13.8 g/dL (14.0-18.0); Mean Corpuscular HGB Conc 33 g/dL (31-36); Mean Corpuscular Hemoglobin 26 pg (27-31); Mean Corpuscular Volume 80 fL (80-94); Mean Platelet Volume 8.3 fL (7.4-10.4); Platelet Count 280 10^3/uL (150-450); Red Blood Count 5.23 10^6 /uL (4.18-5.48); Red Cell Distribution Width 16 % (10-15); White Blood Count 11.6 10^3/uL (3.5-10.8)
[2020-10-20 08:09] LABS: Albumin 4.1 g/dL (3.2-5.2); Albumin/Globulin Ratio 1.3 (1-3); C Reactive Protein 4.52 mg/L (<8.01); Calcium 9.8 mg/dL (8.6-10.3); EGFR African American 84.8 (>60); EGFR Non-African American 70.1 (>60); Globulin 3.2 g/dL (2-4); Potassium 4.4 mmol/L (3.5-5.0); Total Bilirubin 0.9 mg/dL (0.2-1.0); Total Protein 7.3 g/dL (6.4-8.9)
[2020-10-20 08:20] LABS: ABS Basophils 0.1 10^3/ul (0-0.2); ABS Lymphocytes 1.2 10^3/ul (1.0-4.8); ABS Monocytes 1.8 10^3/ul (0-0.8); ABS Neutrophils 8.6 10^3/ul (1.5-7.7); Eosinophil % 0.1 %; Lymphocyte % 10.3 %
[2020-10-20 08:21] LABS: Anisocytosis 1+; Hypochromasia 1+; Microcytosis 1+
[2020-10-20] MEDS ORDERED: Iodixanol (CONTRAST) 320 MG/ML 100 ML SDV IV ONE (11:49)
[2020-10-20 11:59] LABS: Testosterone 20.97 ng/dL (240-950)
[2020-10-20 12:08] LABS: Urine Appearance Clear; Urine Bilirubin Negative (Negative); Urine Blood 1+ (Negative); Urine Color Yellow; Urine Glucose 3+(>=500 mg/dL) (Negative); Urine Ketones 1+ (Negative); Urine Nitrite Negative (Negative); Urine Protein Negative (Negative); Urine Specific Gravity 1.022 (1.002-1.030); Urine Urobilinogen Negative (Negative)
[2020-10-20 12:13] LABS: Free T4 0.94 ng/dL (0.61-1.12)
[2020-10-20 12:17] LABS: Urine Bacteria Absent (Absent); Urine Red Blood Cell 2+(6-10/hpf) (Absent); Urine White Blood Cell Trace(0-5/hpf) (Absent)
[2020-10-20 12:36] LABS: Follicle Stimulating Hormone 2.1 mIU/mL (1-20)
[2020-10-20 12:37] LABS: Luteinizing Hormone 0.2 mIU/mL (2-12)
[2020-10-20] MEDS: Enoxaparin 40 MG/0.4 ML SYR SUBCUT SCH (13:11)
[2020-10-20] MEDS: methylPREDNISolone SOD 40 mg/ml 1 ml VIAL IV SCH (13:11)
[2020-10-20] MEDS: NS 0.9% 1000 ml BAG 1,000 ML IV SCH (13:11)
[2020-10-20] MEDS: Empaglifozin 10 mg TAB (NF) PO SCH (16:20)
[2020-10-21] MEDS: methylPREDNISolone SOD 40 mg/ml 1 ml VIAL IV SCH ×2 (00:27→13:06)
[2020-10-21 05:28] LABS: ABS Lymphocytes 0.7 10^3/ul (1.0-4.8); ABS Monocytes 0.6 10^3/ul (0-0.8); ABS Neutrophils 8.1 10^3/ul (1.5-7.7); Eosinophil % 0.3 %; Hematocrit 41 % (42-52); Hemoglobin 13.5 g/dL (14.0-18.0); Lymphocyte % 7.6 %; Mean Corpuscular HGB Conc 33 g/dL (31-36); Mean Corpuscular Hemoglobin 27 pg (27-31); Mean Corpuscular Volume 81 fL (80-94); Mean Platelet Volume 8.4 fL (7.4-10.4); Nucleated Red Blood Cells % 0.1; Platelet Count 269 10^3/uL (150-450); Red Blood Count 5.04 10^6 /uL (4.18-5.48); Red Cell Distribution Width 16 % (10-15); White Blood Count 9.4 10^3/uL (3.5-10.8)
[2020-10-21 05:47] LABS: Albumin 3.5 g/dL (3.2-5.2); Albumin/Globulin Ratio 1.3 (1-3); Calcium 8.6 mg/dL (8.6-10.3); EGFR African American 157.5 (>60); EGFR Non-African American 130.2 (>60); Globulin 2.8 g/dL (2-4); Potassium 4.4 mmol/L (3.5-5.0); Total Protein 6.3 g/dL (6.4-8.9)
[2020-10-21] MEDS: NS 0.9% 1000 ml BAG 1,000 ML IV SCH ×2 (06:21→21:00)
[2020-10-21] MEDS: Enoxaparin 40 MG/0.4 ML SYR SUBCUT SCH (13:06)
[2020-10-21] MEDS: Empaglifozin 10 mg TAB (NF) PO SCH (17:07)
[2020-10-22] MEDS: methylPREDNISolone SOD 40 mg/ml 1 ml VIAL IV SCH ×3 (00:53→23:55)
[2020-10-22] MEDS: NS 0.9% 1000 ml BAG 1,000 ML IV SCH (12:38)
[2020-10-22] MEDS: Enoxaparin 40 MG/0.4 ML SYR SUBCUT SCH (13:51)
[2020-10-22] MEDS: Empaglifozin 10 mg TAB (NF) PO SCH (16:56)
[2020-10-23 05:33] LABS: ABS Lymphocytes 0.8 10^3/ul (1.0-4.8); ABS Monocytes 0.4 10^3/ul (0-0.8); ABS Neutrophils 8.6 10^3/ul (1.5-7.7); Eosinophil % 0.1 %; Hematocrit 42 % (42-52); Hemoglobin 13.5 g/dL (14.0-18.0); Lymphocyte % 8.2 %; Mean Corpuscular HGB Conc 33 g/dL (31-36); Mean Corpuscular Hemoglobin 27 pg (27-31); Mean Corpuscular Volume 82 fL (80-94); Mean Platelet Volume 8.4 fL (7.4-10.4); Nucleated Red Blood Cells % 0.1; Platelet Count 244 10^3/uL (150-450); Red Blood Count 5.09 10^6 /uL (4.18-5.48); Red Cell Distribution Width 16 % (10-15); White Blood Count 9.8 10^3/uL (3.5-10.8)
[2020-10-23 05:58] LABS: Albumin 3.5 g/dL (3.2-5.2); Albumin/Globulin Ratio 1.3 (1-3); Calcium 8.7 mg/dL (8.6-10.3); EGFR African American 149.2 (>60); EGFR Non-African American 123.3 (>60); Globulin 2.8 g/dL (2-4); Potassium 4.2 mmol/L (3.5-5.0); Total Bilirubin 0.7 mg/dL (0.2-1.0); Total Protein 6.3 g/dL (6.4-8.9)
[2020-10-23] MEDS: NS 0.9% 1000 ml BAG 1,000 ML IV SCH ×2 (06:43→19:58)
[2020-10-23] MEDS: Enoxaparin 40 MG/0.4 ML SYR SUBCUT SCH (13:53)
[2020-10-23] MEDS: methylPREDNISolone SOD 40 mg/ml 1 ml VIAL IV SCH (13:56)
[2020-10-23] MEDS: Empaglifozin 10 mg TAB (NF) PO SCH (16:56)
[2020-10-24] MEDS: methylPREDNISolone SOD 40 mg/ml 1 ml VIAL IV SCH ×2 (00:36→11:37)
[2020-10-24 09:22] LABS: Calcium 8.6 mg/dL (8.6-10.3); EGFR African American 166.8 (>60); EGFR Non-African American 137.9 (>60); Potassium 4.2 mmol/L (3.5-5.0)
[2020-10-24] MEDS: Megestrol 400 MG/10 ML SUSP PO SCH (11:27)
[2020-10-24] MEDS: Enoxaparin 40 MG/0.4 ML SYR SUBCUT SCH (11:37)
[2020-10-24] MEDS: Nystatin SUSPENSION 100,000 UNITS/ML UDC PO SCH ×3 (13:46→20:48)
[2020-10-24] MEDS: Empaglifozin 10 mg TAB (NF) PO SCH (16:31)
[2020-10-25] MEDS: methylPREDNISolone SOD 40 mg/ml 1 ml VIAL IV SCH ×2 (01:35→12:27)
[2020-10-25 06:35] LABS: ABS Lymphocytes 0.9 10^3/ul (1.0-4.8); ABS Monocytes 0.3 10^3/ul (0-0.8); Eosinophil % 0.1 %; Hematocrit 40 % (42-52); Hemoglobin 13.3 g/dL (14.0-18.0); Lymphocyte % 7.7 %; Mean Corpuscular HGB Conc 33 g/dL (31-36); Mean Corpuscular Hemoglobin 27 pg (27-31); Mean Corpuscular Volume 80 fL (80-94); Mean Platelet Volume 8.5 fL (7.4-10.4); Platelet Count 251 10^3/uL (150-450); Red Blood Count 5.01 10^6 /uL (4.18-5.48); Red Cell Distribution Width 16 % (10-15); White Blood Count 11.2 10^3/uL (3.5-10.8)
[2020-10-25 06:50] LABS: Albumin 3.3 g/dL (3.2-5.2); Albumin/Globulin Ratio 1.2 (1-3); Calcium 8.6 mg/dL (8.6-10.3); EGFR Non-African American 159.5 (>60); Globulin 2.7 g/dL (2-4); Total Bilirubin 0.8 mg/dL (0.2-1.0)
[2020-10-25 08:30] VITALS: BP 111/67
[2020-10-25] MEDS: Megestrol 400 MG/10 ML SUSP PO SCH (08:31)
[2020-10-25] MEDS: Nystatin SUSPENSION 100,000 UNITS/ML UDC PO SCH ×2 (08:31→12:27)
[2020-10-25] MEDS ORDERED: NS 0.9% 1000 ml BAG 1,000 ML IV ONE (11:06)
[2020-10-25] MEDS: Enoxaparin 40 MG/0.4 ML SYR SUBCUT SCH (12:27)
== END 2020-10-25 14:50 | disposition home or self-care (01) | DRG 948 ==
LOC: ED 07:08 → MEDTELE 10:20
PROVIDERS: ADMIT Hospitalist; ATTEND Internal Medicine Hematology & Oncology

== ENCOUNTER 2022-02-12 10:17 | Inpatient (IN) ==
[2022-02-12 10:58] LABS: ABS Eosinophils 0.1 10^3/ul (0-0.6); ABS Lymphocytes 1.6 10^3/ul (1.0-4.8); ABS Monocytes 0.8 10^3/ul (0-0.8); Eosinophil % 1.2 %; Hematocrit 43 % (42-52); Hemoglobin 14.3 g/dL (14.0-18.0); Lymphocyte % 16.5 %; Mean Corpuscular HGB Conc 33 g/dL (31-36); Mean Corpuscular Hemoglobin 28 pg (27-31); Mean Corpuscular Volume 85 fL (80-94); Mean Platelet Volume 8.7 fL (7.4-10.4); Platelet Count 208 10^3/uL (150-450); Red Blood Count 5.06 10^6 /uL (4.18-5.48); Red Cell Distribution Width 15 % (10-15); White Blood Count 9.5 10^3/uL (3.5-10.8)
[2022-02-12 11:00] LABS: Urine Appearance Clear; Urine Bilirubin Negative (Negative); Urine Blood Negative (Negative); Urine Color Yellow; Urine Glucose 3+(>=500 mg/dL) (Negative); Urine Ketones Negative (Negative); Urine Nitrite Negative (Negative); Urine Protein Negative (Negative); Urine Specific Gravity 1.032 (1.002-1.030); Urine Urobilinogen Negative (Negative)
[2022-02-12 11:18] LABS: Activated Partial Thrombo Time 32.9 seconds (26.0-38.0); INR 1.12 (0.89-1.11)
[2022-02-12 12:08] LABS: Albumin 3.9 g/dL (3.2-5.2); Albumin/Globulin Ratio 1.6 (1-3); Calcium 9.3 mg/dL (8.6-10.3); Globulin 2.4 g/dL (2-4); HDL Cholesterol 37.3 mg/dL; Potassium 3.8 mmol/L (3.5-5.0); Total Bilirubin 0.5 mg/dL (0.2-1.0); Total Protein 6.3 g/dL (6.4-8.9); eGFR CKD-EPI 99.1 (>60)
[2022-02-12 12:36] LABS: High Sensitivity Troponin 1 Hr 4 pg/mL (<20)
[2022-02-12] MEDS ORDERED: Dextrose 50% Syringe 50 ml 25 GM/50 ML SYRINGE IV PUSH PRN (15:24)
[2022-02-12] MEDS: NS 0.9% 1000 ml BAG 1,000 ML IV SCH (16:03)
[2022-02-13] MEDS: NS 0.9% 1000 ml BAG 1,000 ML IV SCH ×3 (02:49→22:48)
[2022-02-13 06:19] LABS: ABS Eosinophils 0.1 10^3/ul (0-0.6); ABS Lymphocytes 1.3 10^3/ul (1.0-4.8); ABS Monocytes 0.9 10^3/ul (0-0.8); ABS Neutrophils 8.3 10^3/ul (1.5-7.7); Eosinophil % 0.9 %; Hematocrit 42 % (42-52); Mean Corpuscular HGB Conc 33 g/dL (31-36); Mean Corpuscular Hemoglobin 28 pg (27-31); Mean Corpuscular Volume 85 fL (80-94); Platelet Count 205 10^3/uL (150-450); Red Blood Count 4.93 10^6 /uL (4.18-5.48); Red Cell Distribution Width 14 % (10-15); White Blood Count 10.6 10^3/uL (3.5-10.8)
[2022-02-13 06:39] LABS: Magnesium 1.8 mg/dL (1.9-2.7); Potassium 4.1 mmol/L (3.5-5.0); eGFR CKD-EPI 108.1 (>60)
[2022-02-13] MEDS ORDERED: Magnesium Sulfate 2 gm BAG 2 GM/50 ML BAG IVPB ONE (07:33)
[2022-02-13] MEDS: Megestrol 400 MG/10 ML SUSP PO SCH (09:24)
[2022-02-13] MEDS ORDERED: levETIRAcetam 500 MG IVPREMIX 500 MG/100 ML BAG IV SCH (11:00)
[2022-02-14 06:48] LABS: Calcium 8.9 mg/dL (8.6-10.3); Potassium 3.9 mmol/L (3.5-5.0); eGFR CKD-EPI 114.6 (>60)
[2022-02-14] MEDS: Megestrol 400 MG/10 ML SUSP PO SCH (08:08)
[2022-02-14] MEDS: NS 0.9% 1000 ml BAG 1,000 ML IV SCH (08:50)
[2022-02-15 06:15] LABS: ABS Eosinophils 0.2 10^3/ul (0-0.6); ABS Lymphocytes 1.5 10^3/ul (1.0-4.8); ABS Monocytes 0.9 10^3/ul (0-0.8); ABS Neutrophils 6.6 10^3/ul (1.5-7.7); Eosinophil % 2.1 %; Hematocrit 42 % (42-52); Hemoglobin 14.1 g/dL (14.0-18.0); Lymphocyte % 16.1 %; Mean Corpuscular HGB Conc 34 g/dL (31-36); Mean Corpuscular Hemoglobin 29 pg (27-31); Mean Corpuscular Volume 85 fL (80-94); Mean Platelet Volume 8.7 fL (7.4-10.4); Platelet Count 211 10^3/uL (150-450); Red Blood Count 4.94 10^6 /uL (4.18-5.48); Red Cell Distribution Width 14 % (10-15); White Blood Count 9.2 10^3/uL (3.5-10.8)
[2022-02-15 06:29] LABS: Calcium 8.9 mg/dL (8.6-10.3); Magnesium 1.8 mg/dL (1.9-2.7); Potassium 3.7 mmol/L (3.5-5.0); eGFR CKD-EPI 109.3 (>60)
[2022-02-15] MEDS ORDERED: Potassium Chloride LIQUID 20 MEQ/15 ML LIQUID PO ONE (07:29)
[2022-02-15] MEDS ORDERED: Magnesium Sulfate 2 gm BAG 2 GM/50 ML BAG IVPB ONE (07:30)
[2022-02-15] MEDS: Megestrol 400 MG/10 ML SUSP PO SCH (11:33)
[2022-02-16 07:04] LABS: Calcium 9.1 mg/dL (8.6-10.3); Potassium 4.1 mmol/L (3.5-5.0); eGFR CKD-EPI 108.7 (>60)
[2022-02-16] MEDS: Megestrol 400 MG/10 ML SUSP PO SCH (07:47)
[2022-02-16] MEDS ORDERED: Gadoteridol (CONTRAST) 279.3 MG/ML 10 ML IV ONE (17:34)
[2022-02-17] MEDS: Megestrol 400 MG/10 ML SUSP PO SCH (08:10)
[2022-02-17] MEDS ORDERED: Insulin GLARGINE 100 un/ml 10 ml VIAL SUBCUT SCH (21:00)
[2022-02-18 06:43] LABS: ABS Lymphocytes 0.8 10^3/ul (1.0-4.8); ABS Monocytes 0.2 10^3/ul (0-0.8); Eosinophil % 0.1 %; Hematocrit 40 % (42-52); Hemoglobin 13.4 g/dL (14.0-18.0); Lymphocyte % 9.9 %; Mean Corpuscular HGB Conc 33 g/dL (31-36); Mean Corpuscular Hemoglobin 28 pg (27-31); Mean Corpuscular Volume 85 fL (80-94); Mean Platelet Volume 8.6 fL (7.4-10.4); Platelet Count 284 10^3/uL (150-450); Red Blood Count 4.76 10^6 /uL (4.18-5.48); Red Cell Distribution Width 14 % (10-15); White Blood Count 7.9 10^3/uL (3.5-10.8)
[2022-02-18 07:01] LABS: Calcium 9.4 mg/dL (8.6-10.3); Magnesium 1.7 mg/dL (1.9-2.7); Potassium 4.8 mmol/L (3.5-5.0); eGFR CKD-EPI 111.2 (>60)
[2022-02-18] MEDS: Megestrol 400 MG/10 ML SUSP PO SCH (08:45)
[2022-02-18 11:22] VITALS: BP 113/74
== END 2022-02-18 13:20 | DRG 641 ==
LOC: ED 10:17 → EDHOLD 14:04 → SUATTDRO 14:04 → EDHOLD 15:26 → MED 16:49
PROVIDERS: ADMIT Hospitalist; ATTEND Internal Medicine

== ENCOUNTER 2022-02-18 10:32 | Inpatient (IN) ==
[2022-02-18] MEDS ORDERED: Senna TAB 8.6 mg TAB PO PRN (14:17)
[2022-02-18] MEDS ORDERED: Insulin GLARGINE 100 un/ml 10 ml VIAL SUBCUT SCH (21:00)
[2022-02-19 06:41] LABS: ABS Lymphocytes 1.2 10^3/ul (1.0-4.8); ABS Monocytes 0.3 10^3/ul (0-0.8); ABS Neutrophils 11.4 10^3/ul (1.5-7.7); Hematocrit 43 % (42-52); Lymphocyte % 9.4 %; Mean Corpuscular HGB Conc 33 g/dL (31-36); Mean Corpuscular Hemoglobin 28 pg (27-31); Mean Corpuscular Volume 86 fL (80-94); Mean Platelet Volume 8.1 fL (7.4-10.4); Platelet Count 311 10^3/uL (150-450); Red Blood Count 5.02 10^6 /uL (4.18-5.48); Red Cell Distribution Width 14 % (10-15); White Blood Count 12.9 10^3/uL (3.5-10.8)
[2022-02-19 07:26] LABS: Albumin 3.5 g/dL (3.2-5.2); Albumin/Globulin Ratio 1.3 (1-3); Calcium 9.8 mg/dL (8.6-10.3); Globulin 2.6 g/dL (2-4); Potassium 4.6 mmol/L (3.5-5.0); Total Bilirubin 0.4 mg/dL (0.2-1.0); Total Protein 6.1 g/dL (6.4-8.9); eGFR CKD-EPI 104.4 (>60)
[2022-02-19] MEDS: Aspirin EC 81 mg TAB.EC (enteric coated) PO SCH (08:20)
[2022-02-19] MEDS: Megestrol 400 MG/10 ML SUSP PO SCH (08:22)
[2022-02-19 16:53] LABS: Glucose Confirmatory 437 mg/dL (70-100)
[2022-02-19] MEDS ORDERED: Insulin GLARGINE 100 un/ml 10 ml VIAL SUBCUT SCH (21:00)
[2022-02-20] MEDS: Aspirin EC 81 mg TAB.EC (enteric coated) PO SCH (09:44)
[2022-02-20] MEDS: Megestrol 400 MG/10 ML SUSP PO SCH (09:44)
[2022-02-20] MEDS: Insulin GLARGINE 100 un/ml 10 ml VIAL SUBCUT SCH (21:57)
[2022-02-21] MEDS: Aspirin EC 81 mg TAB.EC (enteric coated) PO SCH (10:19)
[2022-02-21] MEDS: Megestrol 400 MG/10 ML SUSP PO SCH (10:22)
[2022-02-21] MEDS ORDERED: Magnesium Hydroxide LIQ 30 ML UDC PO PRN (19:19)
[2022-02-21] MEDS ORDERED: Polyethylene Glycol 3350 17 GM PACKET PO PRN (19:19)
[2022-02-21] MEDS: Insulin GLARGINE 100 un/ml 10 ml VIAL SUBCUT SCH (21:11)
[2022-02-22] MEDS: Megestrol 400 MG/10 ML SUSP PO SCH (07:29)
[2022-02-22] MEDS: Aspirin EC 81 mg TAB.EC (enteric coated) PO SCH (07:29)
[2022-02-22] MEDS: Insulin GLARGINE 100 un/ml 10 ml VIAL SUBCUT SCH (21:13)
[2022-02-22] MEDS ORDERED: Lactulose 30 ml UDC PO PRN (22:46)
[2022-02-22] MEDS ORDERED: Sodium Phosphate ADULT ENEMA 133 ML BTL PR PRN (22:47)
[2022-02-23] MEDS: Megestrol 400 MG/10 ML SUSP PO SCH (08:25)
[2022-02-23] MEDS: Aspirin EC 81 mg TAB.EC (enteric coated) PO SCH (08:26)
[2022-02-23 12:39] LABS: Hematocrit 48 % (42-52); Hemoglobin 15.8 g/dL (14.0-18.0); Mean Corpuscular HGB Conc 33 g/dL (31-36); Mean Corpuscular Hemoglobin 28 pg (27-31); Mean Corpuscular Volume 85 fL (80-94); Mean Platelet Volume 8.1 fL (7.4-10.4); Platelet Count 342 10^3/uL (150-450); Red Blood Count 5.68 10^6 /uL (4.18-5.48); Red Cell Distribution Width 14 % (10-15); White Blood Count 15.7 10^3/uL (3.5-10.8)
[2022-02-23 13:26] LABS: Albumin 3.6 g/dL (3.2-5.2); Albumin/Globulin Ratio 1.3 (1-3); Calcium 9.3 mg/dL (8.6-10.3); Globulin 2.8 g/dL (2-4); Potassium 4.5 mmol/L (3.5-5.0); Total Bilirubin 0.4 mg/dL (0.2-1.0); Total Protein 6.4 g/dL (6.4-8.9); eGFR CKD-EPI 102.5 (>60)
[2022-02-23 13:52] LABS: ABS Basophils 0.1 10^3/ul (0-0.2); ABS Lymphocytes 1.4 10^3/ul (1.0-4.8); ABS Monocytes 0.7 10^3/ul (0-0.8); ABS Neutrophils 13.5 10^3/ul (1.5-7.7); Lymphocyte % 8.6 %
[2022-02-23] MEDS: Insulin GLARGINE 100 un/ml 10 ml VIAL SUBCUT SCH (21:08)
[2022-02-24] MEDS: Aspirin EC 81 mg TAB.EC (enteric coated) PO SCH (09:18)
[2022-02-24] MEDS: Megestrol 400 MG/10 ML SUSP PO SCH (09:21)
[2022-02-24 09:54] LABS: Urine Appearance Clear; Urine Bilirubin Negative (Negative); Urine Blood Negative (Negative); Urine Color Yellow; Urine Glucose Negative (Negative); Urine Ketones Negative (Negative); Urine Nitrite Negative (Negative); Urine Protein Negative (Negative); Urine Specific Gravity 1.025 (1.005-1.030); Urine Urobilinogen 0.2 (Negative) (Negative); Urine pH 6.5 (5.0-9.0)
[2022-02-24] MEDS: Insulin GLARGINE 100 un/ml 10 ml VIAL SUBCUT SCH (22:30)
[2022-02-25] MEDS: Aspirin EC 81 mg TAB.EC (enteric coated) PO SCH (08:11)
[2022-02-25] MEDS: Megestrol 400 MG/10 ML SUSP PO SCH (08:12)
[2022-02-25] MEDS: Insulin GLARGINE 100 un/ml 10 ml VIAL SUBCUT SCH (21:18)
[2022-02-26 06:30] LABS: Hematocrit 43 % (42-52); Hemoglobin 14.6 g/dL (14.0-18.0); Mean Corpuscular HGB Conc 34 g/dL (31-36); Mean Corpuscular Hemoglobin 28 pg (27-31); Mean Corpuscular Volume 84 fL (80-94); Mean Platelet Volume 8.2 fL (7.4-10.4); Platelet Count 242 10^3/uL (150-450); Red Cell Distribution Width 14 % (10-15); White Blood Count 15.6 10^3/uL (3.5-10.8)
[2022-02-26 06:45] LABS: ABS Basophils 0.1 10^3/ul (0-0.2); ABS Lymphocytes 1.2 10^3/ul (1.0-4.8); ABS Monocytes 0.9 10^3/ul (0-0.8); ABS Neutrophils 13.4 10^3/ul (1.5-7.7); Nucleated Red Blood Cells % 0.1
[2022-02-26 07:19] LABS: Albumin 3.1 g/dL (3.2-5.2); Albumin/Globulin Ratio 1.4 (1-3); Calcium 8.5 mg/dL (8.6-10.3); Globulin 2.2 g/dL (2-4); Potassium 4.2 mmol/L (3.5-5.0); Total Bilirubin 0.4 mg/dL (0.2-1.0); Total Protein 5.3 g/dL (6.4-8.9); eGFR CKD-EPI 101.2 (>60)
[2022-02-26] MEDS: Aspirin EC 81 mg TAB.EC (enteric coated) PO SCH (08:59)
[2022-02-26] MEDS: Megestrol 400 MG/10 ML SUSP PO SCH (09:00)
[2022-02-26] MEDS: Insulin GLARGINE 100 un/ml 10 ml VIAL SUBCUT SCH (21:33)
[2022-02-27 04:09] VITALS: BP 128/68
[2022-02-27] MEDS: Aspirin EC 81 mg TAB.EC (enteric coated) PO SCH (08:52)
[2022-02-27] MEDS: Megestrol 400 MG/10 ML SUSP PO SCH (08:53)
== END 2022-02-27 13:30 | disposition hospice, home (50) | DRG 56 ==
LOC: PMRU 14:39
PROVIDERS: ADMIT Physical Medicine & Rehabilitation; ATTEND Physical Medicine & Rehabilitation